=== PATIENT | female | born 1935 | race Caucasian/White ===

== ENCOUNTER 2018-12-14 08:06 | Inpatient (IN) ==
[2018-12-14 09:30] LABS: INR 0.97; PROTIME 13.6 Seconds (11.0-16.0); PTT 21.1 Seconds (22.3-41.8)
[2018-12-14 09:34] LABS: EOS# 1.14 X1000 (0.0-0.7); EOS% 11.8 % (0.0-10.0); HEMATOCRIT 35.5 % (37.0-47.0); HEMOGLOBIN 11.4 g/dL (12.0-16.0); LYMPH# 2.32 X1000 (1.2-3.4); LYMPH% 23.9 % (20.5-51.1); MCH 27.3 PG (27-31); MCHC 32.1 g/dL (33-37); MCV 84.9 FL (81-99); MONO# 0.97 X1000 (0.11-0.59); MPV 11.3 FL (7.4-10.4); NEUT# 5.16 X1000 (1.4-6.5); NEUT% 53.3 % (42.2-75.2); PLT 268 X1000 (130-400); RBC 4.18 XMIL (4.2-5.4); RDW 13.3 % (11.5-14.5); WBC 9.69 X1000 (4.8-10.8)
--- NOTE | 2018-12-14 09:37 | Diag Imaging Result Doc PS360 ---
EXAM: CHEST-2 VIEWS - 12/14/2018 HISTORY: CHEST PAIN TECHNIQUE: Chest two views COMPARISON: 11/24/2018 portable chest FINDINGS: Heart size appears within normal limits. There are stable partially calcified left upper lobe nodule compatible granuloma. There is mild prominence of central vascular markings, but there is overall decreased prominence of interstitial markings compared to prior. There is a small left pleural effusion. There is no consolidation or pneumothorax identified. IMPRESSION: Mild prominence of central vascular markings. Small left pleural effusion. Electronically signed by Dallas Jin 12/14/2018 9:35 AM
--- NOTE | 2018-12-14 09:46 | PROVIDER DOCUMENTATION ---
Addendum entered and electronically signed by DONOVAN Bernstein 12/14/18 21:52: EKG Interpretation - EKG Time of EKG reading by physician:: 08:16 EKG Read and Signed by:: Arun Alvarado EKG Interpretation (*Must complete 3 of following elements*): Abnormal Rate: 61 ST Wave: normal Addendum entered and electronically signed by DONOVAN Bernstein 12/14/18 20:40: Additional Progress - ADDITIONAL PLAN OF CARE/RESULTS Additional Progress/Plan/Lab Results: Spoke with Dr. Alvarado regarding hyponatremia- md states not to treat. Addendum entered and electronically signed by DONOVAN Bernstein 12/14/18 20:39: Departure - Departure Date of Disposition Decision: 12/14/18 Time of Disposition Decision: 09:40 DIAGNOSIS: Pleural effusion, Hyponatremia Chest pain Qualifiers: Chest pain type: unspecified Qualified Code(s): R07.9 - Chest pain, unspecified CHF (congestive heart failure) Qualifiers: Heart failure type: unspecified Heart failure chronicity: acute Qualified Code( s): I50.9 - Heart failure, unspecified Anemia Qualifiers: Anemia type: unspecified type Qualified Code(s): D64.9 - Anemia, unspecified Disposition: ADMITTED INPATIENT 09 Certified Medical Emergency: Emergent Condition: Stable - Critical Care Note This patient required my direct & personal management of CC.: No Original Note: HPI-Chest Pain - General Chief Complaint: Chest Pain Stated Complaint: cp Time Seen by Provider: 12/14/18 09:03 Source: patient Allergies/Adverse Reactions: Patient Allergies Allergy/AdvReac Type Severity Reaction Status Date / Time Penicillins AdvReac HIVES Verified 09/16/16 10:05 Home Medications: Home Medication List Medication Instructions Recorded Confirmed Last Taken Type Aspirin [Ecotrin] 1 tab PO DAILY 12/14/18 12/14/18 12/14/18 History Clopidogrel [Plavix] 1 tab PO DAILY 12/14/18 12/14/18 12/14/18 History Lisinopril [Zestril] 1 tab PO DAILY 12/14/18 12/14/18 12/14/18 History Metoprolol Succinate E.r. [Toprol 1 tab PO DAILY 0212/14/18 12/14/18 History Xl] Rosuvastatin Calcium [Crestor] 1 tab PO QHS 12/14/18 12/14/18 12/13/18 History Temazepam 30 mg PO QHS 12/14/18 12/14/18 12/13/18 History - History of Present Illness-CP Nature of Presenting Problem: Patient is an 83 yowf who complains of left-sided chest pain worse with inspiration since this morning. She denies cough, fever, SOB. Pain associated with nausea. She denies any other symptoms and is non-toxic in appearance. Hx of TN. Pt currently in cardiac rehab at [facility] due to recent TN. Location: reports: other (left chest/breast area) Chest Pain Radiation: reports: no radiation Quality of Pain: reports: other ("pain") Onset/Duration: other (this morning upon awakening) Timing: still present Modifying Factors: improves with: nothing Associated Symptoms: reports: nausea Similar Symptoms Previously?: Yes Recently Seen Here or By Another Healthcare Provider: Yes Review of Systems - Adult - REVIEW OF SYSTEMS - ADULT Constitutional: denies: chills, fever Eyes: reports: no symptoms reported Ears, Nose, Mouth & Throat: reports: no symptoms reported Cardiovascular: reports: see HPI, chest pain. denies: orthopnea, palpitations, PND, syncope Respiratory: denies: cough, shortness of breath Gastrointestinal: reports: nausea Genitourinary: reports: no symptoms reported Musculoskeletal: reports: no symptoms reported Integumentary: reports: no symptoms reported Neurological: reports: no symptoms reported Psychiatric: reports: no symptoms reported Endocrine: reports: no symptoms reported Hematologic/Lymphatic: reports: no symptoms reported Allergic/Immunologic: reports: no symptoms reported All Other Systems: Reviewed and Negative Past History - Adult - PAST MEDICAL HISTORY-ADULT Review of Records: reports: Old Records Reviewed, Nursing Assessment Review, Medications Reviewed, Social history reviewed & non-contributory. Major Childhood Illnesses: reports: denies history Cardiovascular: reports: cardiac disease, HTN, TN Respiratory: reports: denies history Gastrointestinal: reports: cholelithiasis Obstetrical/Gynecological: reports: denies history Genitourinary: reports: denies history Musculoskeletal: reports: denies history Neurological: reports: denies history Endocrine/Immune: reports: denies history Other Conditions: reports: denies history - PRIOR SURGERIES/PROCEDURES Surgical/Procedure History: reports: cholecystectomy, hysterectomy - IMMUNIZATION STATUS Childhood Immunizations: See Nurse Assessment Flu Vaccine: See Nurse Assessment - FAMILY HISTORY Family History: reviewed, not pertinent - SOCIAL HISTORY Smoking: non-smoker Physical Exam-General - PHYSICAL EXAM-ADULT Initial Vital Signs Reviewed: Yes - CONSTITUTIONAL General Appearance: alert, mild distress. negative: lethargic, slow to respond - EYES Eyes: PERRL/EOMI, pink conjunctivae - HEAD, EARS, NOSE, MOUTH & THROAT HENMT: normocephalic/atraumatic, moist mucous membranes, normal ENT inspection - NECK Neck: full range of motion, supple, normal inspection - RESPIRATORY Respiratory: lungs clear, normal breath sounds, no respiratory distress, no accessory muscle use, other (left chest/breast area tender to palpation) - CARDIOVASCULAR Cardiovascular: normal peripheral pulses, regular rate, rhythm, no edema, no gallop, no JVD, no murmur - GASTROINTESTINAL (ABDOMEN) Abdominal Exam: normal bowel sounds, non tender, soft, no organomegaly, no pulsatile mass - MUSCULOSKELETAL Back Exam: normal inspection Extremity: normal range of motion, non-tender, normal inspection - SKIN Integumentary: normal color, warm/dry. negative: cyanosis, diaphoresis, jaundice, mottled, pallor - NEUROLOGIC Neurologic: grossly normal, no motor/sensory deficits - PSYCHIATRIC Psych/Mental Status: normal mood/affect, normal thought content, normal thought process, oriented x 3 - HEART Score HEART Score: History: Highly Suspicious HEART Score: ECG: Non-Specific Repolarization Disturbance/LBBB/PM HEART Score: Age: > or = 65 Years HEART Score: Risk Factors for Atherosclerotic Disease: > or = 3 Risk Factors or History of Atherosclerotic Disease HEART Score: Troponin: < or = Normal Limit Total HEART Score:: 7 Progress - PLAN OF CARE/RESULTS Progress/Plan/Lab Results: Orders Category Date Time Status Admit - [facility] Routine AdmDCTranf 12/14/18 12:08 Active Cardiac Monitoring DIRECTED Care 12/14/18 08:59 Completed Cardiology Consult Routine Care 12/14/18 12:08 Completed Ewing Cath Insertion ORDERED Care 12/14/18 11:08 Completed Saline Loc NOW Care 12/14/18 08:59 Completed Vital Signs Order Q30M Care 12/14/18 09:13 Completed CHEST-2 VIEWS [RAD] Stat Exams 12/14/18 08:59 Completed CBC WITH ELECTRONIC DIFF [HEME] Stat Lab 12/14/18 08:35 Completed CK PROFILE [SP CHEM] Stat Lab 12/14/18 08:35 Completed COMPREHENSIVE METABOLIC PANEL [CHEM] Stat Lab 12/14/18 08:35 Completed MAGNESIUM [CHEM] Stat Lab 12/14/18 08:35 Completed PRO B-NATRIURETIC PEPTIDE Stat Lab 12/14/18 08:35 Completed PROTIME WITH INR [COAG] Stat Lab 12/14/18 08:35 Completed PTT [COAG] Stat Lab 12/14/18 08:35 Completed TROPONIN T Stat Lab 12/14/18 08:35 Completed Aspirin Med 12/14/18 10:10 Discontinued 325 mg PO NOW ONE Furosemide [Lasix] Med 12/14/18 10:10 Discontinued 40 mg IV NOW ONE CP/SOB/Palp >45 yrs of Age Stat Oth 12/14/18 08:58 Ordered EKG [EKG] Stat Ther 12/14/18 08:59 Draft Transfer/Admit Order [TRANSFER] Routine Transfer 12/14/18 11:09 Completed 1107- Spoke with Dr. Reynoso who states to admit to Dr. Lugo and he will see pt and consult Dr. Monk. Pt and family aware of admission plan and are in agreement. Result Diagrams: 12/17/18 06:29 12/20/18 05:03 - XRAY 1 XRAY Study: Chest ([facility] [address] , [address], [place] [address] Department of Imaging Patient: MISTI LIMA Date: #: [id number] : 1935DM Status: PRE ERAcct#: [id number] Age/Sex: 83/FRoom/Bed: Loc: ED Ordering Physician: Arun Alvarado MD Family Physician : Cr Wilhelm Reason for Procedure: CHEST PAIN Signed EXAM: CHEST-2 VIEWS - 12/14/2018 HISTORY: CHEST PAIN TECHNIQUE: Chest two views COMPARISON: 11/24/2018 portable chest FINDINGS: Heart size appears within normal limits. There are stable partially calcified left upper lobe nodule compatible granuloma. There is mild prominence of central vascular markings, but there is overall decreased prominence of interstitial markings compared to prior. There is a small left pleural effusion. There is no consolidation or pneumothorax identified. IMPRESSION: Mild prominence of central vascular markings. Small left pleural effusion. Electronically signed by Dallas Jin 12/14/2018 9:35 AM 12/14/18 0935 Interpreting Physician: Dallas Jin MD Dictated Date/Time: 12/14/1831 cc: Arun Alvarado MD ; Cr Wilhelm III, MD) - CONSULTS/PCP/HOSPITALIST Notification #1 *Consult/PCP/Hospitalist*: Dr. Reynoso Time Discussed: 09:15 Consult Disposition: other (Md states to call [place] to evaluate whether or not pt should be transferred back.) #2 Consult: Moe in [place] Time Discussed: 09:45 Consult Disposition: other (States to consult cardiology here before making decision to transfer) #3 Consult: Dr. Monk Time Discussed: 10:15 Consult Disposition: Admit (States to call Dr. Reynoso back to be admitted here that it does not appear pt needs to be transferred to [place] at this time.) Departure - Departure Date of Disposition Decision: 12/14/18 Time of Disposition Decision: 09:40 DIAGNOSIS: Pleural effusion, Hyponatremia Chest pain Qualifiers: Chest pain type: unspecified Qualified Code(s): R07.9 - Chest pain, unspecified CHF (congestive heart failure) Qualifiers: Heart failure type: unspecified Heart failure chronicity: acute Qualified Code( s): I50.9 - Heart failure, unspecified Anemia Qualifiers: Anemia type: unspecified type Qualified Code(s): D64.9 - Anemia, unspecified Disposition: ADMITTED INPATIENT 09 Certified Medical Emergency: Emergent Condition: Stable - Critical Care Note This patient required my direct & personal management of CC.: No Attestation - Physician/ HERBERT Attestation Patient care was provided by Advanced Practice Provider:: Yes Advanced Practice Provider:: Erin Weiner Advanced Practice Provider documentation review:: The Mid-level provider documentation, treatment plan and medical decision making was reviewed by the physician who agrees with all treatment and medical decision making by the MLP. The physician spent face to face time with patient:: No Advanced Practice Provider documentation review:: Supervising physician onsite and consulted in the evaluation and care of this patient. The physician did not have a face to face encounter with the patient.
[2018-12-14 09:55] LABS: ALB/GLOB RATIO 0.9; ALBUMIN 3.4 g/dL (3.5-5.0); CALCIUM 9.2 mg/dL (8.8-10.2); CREATININE 1.9 mg/dL (0.5-0.9); POTASSIUM 5.6 mmol/L (3.5-5.1); TOTAL BILIRUBIN 0.32 mg/dL (0.20-1.00)
[2018-12-14] MEDS ORDERED: ASPIRIN PO ONE (10:10)
[2018-12-14] MEDS ORDERED: LASIX IV ONE (10:10)
--- NOTE | 2018-12-14 11:51 | EKG Report ---
Test Performed on : 12/14/2018 08:15:46 AM Test Reason : CHEST PAIN Blood Pressure : / mmHG Vent. Rate : 061 BPM Atrial Rate : 061 BPM P-R Int : 116 ms QRS Dur : 074 ms QT Int : 410 ms P-R-T Axes : 022 -13 -22 degrees QTc Int : 412 ms Normal sinus rhythm. Low voltage QRS Inferior infarct , age undetermined Cannot rule out Anterior infarct , age undetermined Abnormal ECG No previous ECGs available Unconfirmed Result
[2018-12-14] MEDS ORDERED: TYLENOL PO PRN (13:38)
--- NOTE | 2018-12-14 14:12 | HISTORY AND PHYSICAL ---
CHIEF COMPLAINT: Chest pain. HISTORY OF PRESENT ILLNESS: The patient is an 83-year-old, white female who had an NV not long ago, and was in rehab for cardiac status. She did have stent placement. This was all done at [facility]. This morning she woke up she thinks around 05:00 or 06:00 in the morning with some mild left-sided chest pain when she takes a deep breath. This sounds more like pleuritic pain than anything else. She denied cough, fever or shortness of breath. She has not had this before. She was brought to the emergency room. PAST MEDICAL HISTORY: Past history includes medications of aspirin 81 mg daily, Plavix 1 daily, lisinopril 1 tablet daily. I do not have the dosages on these. Metoprolol succinate one tablet daily, I did not know the dosages and Crestor 1 tablet at bedtime, do not have the dosages on this. PAST SURGICAL HISTORY: The patient's past history also includes surgical history of initially a partial hysterectomy, and later she had another surgery that made it into a total hysterectomy. She has had old style cholecystectomy with a large scar. She has had a left carotid endarterectomy. ALLERGIES: She is allergic to penicillin. REVIEW OF SYSTEMS: Neurological: Denies headaches, seizures, visual problems, or hearing problems. Since then, she is having a hard time remembering. She has been a little confused. I could not remember all the details. Pulmonary: Denies cough, wheezing, or dyspnea. Cardiovascular: Denies chest pains that sound cardiac. Her sounds more pleuritic. She has had no arrhythmias. She has had a recent NV within the last few weeks. GI: Denies hematochezia, hematemesis, melena, constipation, and occasionally has reflux. She has had impactions in the past but has not had that problem recently. : Denies any difficulty with urination. Musculoskeletal: Denies any injuries or problems with arthritis at this time. Psychiatric: She has had a little trouble with memory, but denies depression or anxiety. Endocrine: Denies diabetes or other endocrine problems. She has generally felt a little tired. SOCIAL HISTORY: She does not use alcohol or tobacco. FAMILY HISTORY: She has never had any children, and is negative for any vascular disease. PHYSICAL EXAMINATION: VITAL SIGNS: Blood pressure 132/56, respirations 20, pulse 63 and regular, temperature 97.6 degrees Fahrenheit. HEENT: She is normocephalic. EOMS intact. PERRLA. Throat clear. LUNGS: Clear to auscultation and percussion without rhonchi, rales, or wheezes at this time. HEART: Regular rate and rhythm without murmurs, gallops, or friction rubs. ABDOMEN: Soft. Active bowel sounds. No organomegaly or tenderness. BREASTS: Exam is normal bilaterally with no masses. PELVIC AND RECTAL: Exams are deferred. LYMPHATIC: Lymph nodes are nonpalpable in the cervical or supraclavicular areas. NEUROLOGICAL: Exam shows cranial nerves 2-12 intact grossly. Sensory and motor intact. Reflexes 1+ all. LABORATORY STUDIES: Laboratory does show white count of 9690, hemoglobin 11.4 and hematocrit 35.5. Platelet count 268,000. Sodium slightly low at 126. She tells me she has not had any sodium problems in the past that she knows of. Potassium is 5.6, which is up slightly. Chloride is 94 which is down slightly. CO2 is 24 down slightly. BUN is 28 and creatinine is 1.9. I do not know if this is chronic renal failure or something more acute. Her proBNP is 5036 more consistent with congestive heart failure. Chest x-ray shows mild prominence of the central vascular markings with small left pleural effusion which may be where her pain is coming from. EKG shows a normal sinus rhythm with an inferior infarct of age indeterminate. Also, cannot rule out anterior infarct, age undetermined. It is interesting that the patient had been admitted to the hospital in July of 2018 with atrial fibrillation and rapid ventricular response. Apparently, she is not in atrial fibrillation any longer. She did have a cardioversion that was successful at that time apparently. The patient was unaware of all of this at least at this time. We have been discussing it with her. ASSESSMENT: 1. Chest pain. 2. Left pleural effusion. 3. Probable CHF with elevated proBNP. 4. Coronary artery disease. 5. Peripheral vascular disease. 6. Hypertension. 7. History of atrial fibrillation. 8. Hyponatremia. 9. Slight hyperkalemia. 10. Slight hypochloremia. PLAN: We will admit, and have consulted Cardiology. We will watch electrolytes closely. We will get an echocardiogram. If pleural effusion is persistent, may have to consider thoracentesis, but we will see what cardiology says first. cc: MD Arun Quesada Jr, MD
[2018-12-14 15:12] LABS: URINE SOURCE CATH
[2018-12-14 15:16] LABS: BILIRUBIN URINE NEGATIVE (NEGATIVE); BLOOD URINE SMALL (NEGATIVE); COLOR YELLOW; GLUCOSE URINE NEGATIVE (NEGATIVE); KETONE URINE NEGATIVE (NEGATIVE); LEUKOCYTES URINE NEGATIVE (NEGATIVE); NITRITE URINE NEGATIVE (NEGATIVE); PROTEIN URINE 70 mg/dL (NEGATIVE); SP GRAVITY URINE 1.004; TURBIDITY URINE HAZY (CLEAR); UR EPITHELIAL CELLS <10 /HPF (<10); URINE BACTERIA NEGATIVE /HPF; URINE RBC <10 /HPF (<10); URINE WBC <10 /HPF (<10); UROBILINOGEN URINE NORMAL (NORMAL)
[2018-12-14 15:37] LABS: URINE CRYSTALS NONE SEEN
[2018-12-14] MEDS: IMDUR PO SCH (17:17)
[2018-12-14] MEDS: LOVENOX SUBQ SCH (18:16)
[2018-12-14] MEDS: COLACE PO SCH (18:16)
[2018-12-14] MEDS: ZOFRAN IV PRN (19:28)
[2018-12-14] MEDS: RESTORIL PO SCH (21:59)
[2018-12-14] MEDS: CRESTOR PO SCH (21:59)
[2018-12-15 05:37] LABS: BASO# 0.09 X1000 (0.0-0.2); BASO% 1.1 % (0.0-0.8); EOS# 0.46 X1000 (0.0-0.7); EOS% 5.4 % (0.0-10.0); HEMOGLOBIN 12.2 g/dL (12.0-16.0); IMM GRAN# 0.02 X1000 (0.0-0.04); IMM GRAN% 0.2 % (0.0-0.5); LYMPH# 1.61 X1000 (1.2-3.4); LYMPH% 18.8 % (20.5-51.1); MCH 27.1 PG (27-31); MCHC 32.1 g/dL (33-37); MCV 84.4 FL (81-99); MONO# 0.98 X1000 (0.11-0.59); MONO% 11.4 % (1.7-9.3); NEUT% 63.1 % (42.2-75.2); PLT 295 X1000 (130-400); RDW 13.2 % (11.5-14.5); WBC 8.56 X1000 (4.8-10.8)
[2018-12-15 05:50] LABS: CALCIUM 9.2 mg/dL (8.8-10.2); CREATININE 2.1 mg/dL (0.5-0.9); POTASSIUM 5.9 mmol/L (3.5-5.1)
[2018-12-15 07:12] LABS: EOS 2 % (1-10); LYMPHS 24 % (21-51); SEGS 74 % (42-75)
--- NOTE | 2018-12-15 09:34 | Diag Imaging Result Doc PS360 ---
EXAM: CHEST-2 VIEWS 12/15/2018 HISTORY: chf TECHNIQUE: PA and lateral chest COMMENT: There is some blunting of the left costophrenic angle which may be due to fibrosis as this has not changed since 08/14/2018. There has been no significant change in the appearance of the chest otherwise. IMPRESSION: Stable chest. Electronically signed by Maurice Busby 12/15/2018 9:31 AM
--- NOTE | 2018-12-15 09:39 | PROGRESS NOTE ---
DATE: 12/15/2018 SUBJECTIVE: The patient states she just does not feel well. I tried to get her to explain it, and she could not. She is not hurting anywhere. She is not short of breath. She occasionally has a little left lower quadrant abdominal pain. She says she has not been constipated. I asked her if she was depressed, and she just did not answer. She looks weak and tired. Her blood pressure is stable. She is not anemic. Sodium is 126 which could be contributing to that. Potassium is 5.9, creatinine is up to 2.1 probably from the Lasix. We will get a thyroid test and vitamin B12. It may just be the sodium being low at 126 is affecting her. OBJECTIVE: Vital Signs: Blood pressure 108/41, respirations 16, pulse 66, and temperature 98.5 degrees Fahrenheit. HEENT: She is normocephalic. EOMS intact. PERRLA. Throat clear. Lungs: Sound clear to auscultation and percussion without rhonchi, rales, or wheezes. Heart: Regular rate and rhythm without murmurs, gallops, or friction rubs. Abdomen: Soft. Active bowel sounds. No organomegaly or tenderness. Neurological: Intact grossly. The patient looks tired. She really does not want to talk much at this time. She says it is hard for her to explain how she feels. ASSESSMENT: 1. Congestive heart failure. 2. Left pleural effusion. 3. Fatigue. 4. Coronary artery disease. PLAN: Awaiting echocardiogram. We will continue diuresis. Watch sodium and kidney function closely. cc: MD Arun Quesada Jr, MD
[2018-12-15 09:43] LABS: T4 6.95 ug/dL (4.60-12.00); TSH 4.58 uIUmL (0.27-4.20)
[2018-12-15] MEDS: ASPIRIN EC PO SCH (09:49)
[2018-12-15] MEDS: PLAVIX PO SCH (09:49)
[2018-12-15] MEDS: IMDUR PO SCH (09:49)
[2018-12-15] MEDS: COLACE PO SCH (09:49)
[2018-12-15] MEDS: PRINIVIL PO SCH (09:49)
[2018-12-15] MEDS: TOPROL XL PO SCH (09:52)
[2018-12-15] MEDS: LASIX IV SCH (10:12)
[2018-12-15] MEDS: LOVENOX SUBQ SCH (13:39)
--- NOTE | 2018-12-15 14:51 | ECHO REPORT ---
ORDER DATE: 12/14/2018 INDICATION: CHF. FINDINGS: 1. The right atrium appears normal in size. 2. Mild tricuspid regurgitation. RV systolic pressure of 37. 3. Normal RV size and systolic function. 4. Trace pulmonic insufficiency. 5. Suggestion of moderate to possibly severe left atrial enlargement. The dimension is 4.2 cm. 6. No mitral valve prolapse. Mild mitral regurgitation. 7. Normal LV size, end-diastolic dimension of 4.2. Normal wall thicknesses with posterior and interventricular septal wall thickness of 0.8 cm each. Normal LV systolic function. Estimated EF of 65% with normal wall motion. 8. Aortic valve opens well. It is trileaflet. No evidence of stenosis or insufficiency. 9. Aorta appears normal in visualized segments. 10. No pericardial effusion seen. cc: MD Louie Holcomb Jr, MD Robert Allen, MD
[2018-12-15] MEDS: RESTORIL PO SCH (21:45)
[2018-12-15] MEDS: CRESTOR PO SCH (21:45)
[2018-12-15] MEDS: ZOFRAN IV PRN (21:46)
[2018-12-16 06:59] LABS: BASO# 0.08 X1000 (0.0-0.2); BASO% 1.1 % (0.0-0.8); EOS# 0.36 X1000 (0.0-0.7); EOS% 5.1 % (0.0-10.0); HEMATOCRIT 34.3 % (37.0-47.0); HEMOGLOBIN 11.1 g/dL (12.0-16.0); LYMPH% 25.4 % (20.5-51.1); MCH 27.3 PG (27-31); MCHC 32.4 g/dL (33-37); MCV 84.3 FL (81-99); MONO% 11.3 % (1.7-9.3); MPV 11.4 FL (7.4-10.4); NEUT# 4.04 X1000 (1.4-6.5); NEUT% 57.1 % (42.2-75.2); PLT 264 X1000 (130-400); RBC 4.07 XMIL (4.2-5.4); WBC 7.08 X1000 (4.8-10.8)
[2018-12-16 07:24] LABS: CALCIUM 9.3 mg/dL (8.8-10.2); CREATININE 2.4 mg/dL (0.5-0.9); POTASSIUM 5.3 mmol/L (3.5-5.1)
[2018-12-16 07:50] LABS: EOS 4 % (1-10); LYMPHS 32 % (21-51); MONO 2 % (1-9); SEGS 60 % (42-75)
[2018-12-16] MEDS: COLACE PO SCH (11:06)
[2018-12-16] MEDS: PRINIVIL PO SCH (11:06)
[2018-12-16] MEDS: IMDUR PO SCH (11:06)
[2018-12-16] MEDS: PLAVIX PO SCH (11:06)
[2018-12-16] MEDS: ASPIRIN EC PO SCH (11:06)
[2018-12-16] MEDS: TOPROL XL PO SCH ×2 (11:06→16:25)
[2018-12-16] MEDS: LASIX IV SCH (11:07)
--- NOTE | 2018-12-16 13:11 | PROGRESS NOTE ---
DATE: 12/16/2018 SUBJECTIVE: The patient says she is feeling better. Has no complaints. No chest pain. No abdominal pain. OBJECTIVE: Vital Signs: Blood pressure 102/49, respirations 16, pulse 75, temperature 97.8 degrees. HEENT: She is normocephalic. EOMS intact. PERRLA. Throat clear. Lungs: Sound clear to auscultation and percussion without rhonchi, rales, or wheezes. Heart: Regular rate and rhythm without murmurs, gallops, friction rubs. Abdomen: Soft. Active bowel sounds. No organomegaly or tenderness. Neurological: Intact grossly. LABORATORY DATA: Sodium is up to 127. Her thyroid function test and vitamin B12 levels that we chanelle because of her fatigue were normal. Her echocardiogram showed an ejection fraction of 65%. There was suggestion of moderate to possibly severe left atrial enlargement. The rest of the study was normal. Her chest x-ray showed blunting at the left costophrenic angle and instead of calling this a pleural effusion they thought that it might be fibrosis because it has not changed since 08/14/2018 and I have given her Lasix already. She had no swelling in her feet. She did have an elevated proBNP of a little over 5000. Still awaiting Cardiology to see the patient. ASSESSMENT: 1. Questionable congestive heart failure. 2. Pleural effusion versus fibrosis left base. 3. Status post myocardial infarction. 4. Generalized weakness. We will start on some physical therapy. cc: MD Arun Quesada Jr, MD
[2018-12-16] MEDS: LOVENOX SUBQ SCH (14:04)
[2018-12-16] MEDS: ZOFRAN IV PRN (17:03)
[2018-12-16] MEDS: RESTORIL PO SCH (21:48)
[2018-12-16] MEDS: CRESTOR PO SCH (21:48)
[2018-12-17 06:51] LABS: BASO# 0.07 X1000 (0.0-0.2); EOS# 0.43 X1000 (0.0-0.7); EOS% 5.9 % (0.0-10.0); HEMOGLOBIN 11.6 g/dL (12.0-16.0); LYMPH% 24.6 % (20.5-51.1); MCH 27.4 PG (27-31); MCHC 32.2 g/dL (33-37); MCV 85.1 FL (81-99); MONO% 13.6 % (1.7-9.3); NEUT# 4.03 X1000 (1.4-6.5); NEUT% 54.9 % (42.2-75.2); PLT 244 X1000 (130-400); RBC 4.23 XMIL (4.2-5.4); WBC 7.33 X1000 (4.8-10.8)
[2018-12-17 08:04] LABS: CALCIUM 9.2 mg/dL (8.8-10.2); CREATININE 2.2 mg/dL (0.5-0.9); POTASSIUM 4.7 mmol/L (3.5-5.1)
[2018-12-17] MEDS: COLACE PO SCH (09:55)
[2018-12-17] MEDS: IMDUR PO SCH (09:55)
[2018-12-17] MEDS: ASPIRIN EC PO SCH (09:55)
[2018-12-17] MEDS: TOPROL XL PO SCH (09:55)
[2018-12-17] MEDS: PLAVIX PO SCH (09:55)
--- NOTE | 2018-12-17 12:05 | PROGRESS NOTE ---
DATE: 12/17/2018 SUBJECTIVE: The patient says she just does not feel good. She cannot explain it to me but just says she does not feel good. She says she has low back pain and has had that for some time. She says she is just getting old. Looking at her heart situation and discussing this in detail with Dr. Ritesh Cerda, vehicle window tinter, I felt like she was not having any new heart problems and that her chest pain was atypical. She even admitted that the chest pain was left-sided and not very severe. She was sent over by her rehab because she had a heart attack with stent placement just a couple of weeks prior to being transported over. There was some question about left pleural effusion but this is unchanged from before. It may be old scar tissue or fibrosis. I asked her if she was depressed and she said no but she started crying. I explained to her that it is not uncommon to be upset after a heart attack and having these changes but she still states that she does not think that she is depressed but she has a very flat affect. She seems pessimistic, does not think she will ever get to go back home again, and complains of the low back pain when she is up and walking. She has had no dysuria but has a Ewing catheter in and the urine looks clear but I will go ahead and culture that and do another urinalysis, or at least get a urinalysis with a reflux culture. If there is an infection, we will treat that. Because she has just felt so tired and felt so bad, and cannot be more specific, I did check thyroid function tests and a vitamin B12 level. Those were normal. She does have some mild kidney failure. Some of this is chronic. Her creatinine is 2.2 today, BUN 64. Sodium is 127, which can make some people feel bad but that is not very low for those feelings. PHYSICAL EXAMINATION: Vital Signs: Show blood pressure of 103/43, respirations 14, pulse 75, temperature 98.6 degrees Fahrenheit. HEENT: She is normocephalic. EOMs intact. PERRLA. Throat clear. Lungs: Clear to auscultation and percussion without rhonchi, rales, or wheezes. Heart: Regular rate and rhythm without murmurs, gallops, or friction rubs. Abdomen: Soft. Active bowel sounds. No organomegaly or tenderness. Psychiatric: The patient appears depressed to me, even though she denies it. She has somewhat of a flat affect. She seems pessimistic and sad. She has been tearful. ASSESSMENT: 1. Chest pain. 2. Coronary artery disease, status post stenting and status post myocardial infarction. 3. Low back pain, which is chronic. 4. Just a feeling of not being well. PLAN: We will stop her Ewing catheter and get repeat a urinalysis as above. She may need further workup on her back but I do not know what has been done as an outpatient already. Dr. Lugo will be back in the morning and then he can decide about this. From a cardiac point of view, cardiology does not think that she needs any other intervention at this time. Her other symptoms and signs are a little harder to tell about. We will see if Dr. Lugo can shed some light on this. It could also be that her hyponatremia is affecting her more than I would think it should. She certainly does have some hyponatremia. Her Lasix has been stopped and her ROYAL inhibitor has been stopped. cc: MD Arun Quesada Jr, MD
[2018-12-17] MEDS: LOVENOX SUBQ SCH (13:43)
[2018-12-17 13:44] LABS: URINE SOURCE CATH
[2018-12-17 13:46] LABS: BILIRUBIN URINE NEGATIVE (NEGATIVE); BLOOD URINE MODERATE (NEGATIVE); COLOR YELLOW; GLUCOSE URINE NEGATIVE (NEGATIVE); KETONE URINE NEGATIVE (NEGATIVE); LEUKOCYTES URINE MODERATE (NEGATIVE); NITRITE URINE NEGATIVE (NEGATIVE); PROTEIN URINE TRACE mg/dL (NEGATIVE); TURBIDITY URINE HAZY (CLEAR); UROBILINOGEN URINE NORMAL (NORMAL)
[2018-12-17 13:48] LABS: UR EPITHELIAL CELLS <10 /HPF (<10); URINE BACTERIA NEGATIVE /HPF; URINE RBC TNTC /HPF (<10); URINE WBC <10 /HPF (<10)
[2018-12-17] MEDS: CRESTOR PO SCH (21:44)
[2018-12-17] MEDS: RESTORIL PO SCH (21:44)
--- NOTE | 2018-12-18 08:33 | PROGRESS NOTE ---
DATE: 12/18/2018 Vital signs stable with temperature 98.0, heart rate 84, respiration 18, blood pressure 109/48, O2 saturation on room air 97%. The patient is eating fairly well. She has not been out of the bed since being in the hospital. Laboratory yesterday revealed BUN 64, creatinine 2.2, sodium 127, proBNP on 12/16/2018 was 5900. Echocardiogram showed ejection fraction 65% and good left ventricular function. Initially, there was a small left pleural effusion. O2 sats have remained good. Exam reveals depressed affect. She states she needs more rehab time and does not feel she will ever return home. PLAN: Add Lexapro and physical therapy to assist ambulation. Social service consult will be obtained to determine disposition and extended rehab or group home care. cc: Arun Lugo MD
[2018-12-18] MEDS ORDERED: LEXAPRO PO SCH (09:00)
--- NOTE | 2018-12-18 09:51 | CONSULTATION ---
DATE OF CONSULTATION: 12/16/2018 IMPRESSION: 1. Recent chest discomfort, very atypical for myocardial ischemia. No acute change on ECG, and serial troponins normal. Suspect chest discomfort is likely noncardiac. 2. Atherosclerotic coronary disease. Patient is status post acute inferior-posterior myocardial infarction on 11/24/2018 and had emergent coronary angioplasty with stenting, presumably of the right coronary artery, in [facility]. Following her hospitalization there she was discharged to rehab. 3. Paroxysmal atrial fibrillation. The patient is status post previous cardioversion of atrial fibrillation last year. 4. Hypertension. RECOMMENDATIONS: 1. Continue dual antiplatelet therapy with aspirin and Plavix. 2. Continue statin therapy. 3. Continue medical management of the patient's coronary atherosclerosis at this time. Recent chest symptoms are likely noncardiac. It is reasonable for her to be discharged to home soon. HISTORY: This 83-year-old white female with a past history of hypertension, previous atrial fibrillation requiring cardioversion, and more recent acute inferior-posterior myocardial infarction 3 weeks ago treated with emergent angioplasty/stenting in [facility] was admitted on transfer from the rehab facility because of chest discomfort. On November 24 of this year she related developing pain in her left hand which extended up her left arm and into her left chest. She went to the emergency room by ambulance and was found to be having an acute inferior- posterior myocardial infarction. She was transferred emergently to [facility] and had emergency angioplasty with stenting. Following hospitalization there, she was discharged to a residential facility for rehabilitation. Two days ago she related some discomfort in her left lateral chest that seemed to be provoked by breathing out, and it would very momentary/fleeting. She has had no recurrence of left arm discomfort or chest discomfort like she had with her acute ND. PAST MEDICAL HISTORY: 1. Previous atrial fibrillation requiring cardioversion last year. The patient continues in sinus rhythm. 2. Hypertension. 3. Atherosclerotic coronary disease with previous acute inferior-posterior myocardial infarction on 11/24/2018, treated with emergency angioplasty with stenting, presumably of the right coronary artery, at [facility]. PAST SURGICAL HISTORY: Includes partial hysterectomy, later bilateral salpingo-oophorectomy, unspecified throat surgery, cholecystectomy, and appendectomy. ALLERGIES: She is allergic or intolerant to penicillin. MEDICATIONS PRIOR TO ADMISSION: As listed SOCIAL HISTORY: She lives by herself at home. She does not smoke or use alcohol. FAMILY HISTORY: Negative for premature coronary disease. REVIEW OF SYSTEMS: PULMONARY: Negative GASTROINTESTINAL: Negative CONSTITUTIONAL: Negative. Remainder of review of systems negative/noncontributory, with 14 total systems reviewed. PHYSICAL EXAMINATION GENERAL: This is a thin, elderly, somewhat frail-appearing white female in no distress on room air. VITAL SIGNS: Blood pressure 121/52, heart rate 72 and regular, oxygen saturation 100% on room air. HEENT: Extraocular movements appear to be intact. Mucous membranes moist. NECK: Supple without jugular venous distention. There are no carotid bruits. CHEST: Clear to auscultation bilaterally. CARDIAC: Exam reveals a regular rate and rhythm without appreciable murmur, rub or gallop. ABDOMEN: Soft. Bowel sounds are normal. EXTREMITIES: Without edema. NEUROLOGIC: Exam reveals her to be alert and fully oriented. Speech is fluent. She moves all 4 extremities. She moves all 4 extremities equally well. SKIN: Warm and dry. PSYCHIATRIC: Exam reveals her mood to be appropriate. DIAGNOSTICS: ECG demonstrates sinus rhythm, low-voltage QRS, and cannot rule out inferior infarction of indeterminate age. LABORATORY DATA: Includes white blood cell count of 7.08, hematocrit of 34.3, hemoglobin of 11.1, platelet count of 264. Sodium 127, potassium 5.3, chloride 91, carbon dioxide 23, BUN 54, creatinine 2.4, glucose 84. Initial troponin 0.050, followup troponin 0.064. cc: MD Arun Smith MD
[2018-12-18] MEDS: ASPIRIN EC PO SCH (10:35)
[2018-12-18] MEDS: TOPROL XL PO SCH (10:35)
[2018-12-18] MEDS: PLAVIX PO SCH (10:35)
[2018-12-18] MEDS: COLACE PO SCH (10:35)
[2018-12-18] MEDS: IMDUR PO SCH (10:35)
[2018-12-18] MEDS: LOVENOX SUBQ SCH ×2 (12:31→15:04)
[2018-12-18] MEDS ORDERED: LOVENOX SUBQ ONE (15:18)
[2018-12-18] MEDS ORDERED: CORDARONE IV ONE (15:20)
[2018-12-18] MEDS ORDERED: CORDARONE 360 MG/D5W 360 MG/200 ML IV.SOLN IV ONE (15:21)
--- NOTE | 2018-12-18 15:54 | PROGRESS NOTE ---
DATE: 12/18/2018 SUBJECTIVE: Patient denies chest discomfort or dyspnea. She complains of nausea. She went into atrial fibrillation with rapid ventricular rate earlier. OBJECTIVE: Vital Signs: Blood pressure 110/82, heart rate 135 and irregular. ECG monitor shows atrial fibrillation with rapid ventricular rate. There was a short episode of irregular wide complex tachycardia that was probably atrial fibrillation with aberrancy. Oxygen saturation 96% on room air. Neck: There is no significant jugular venous distention. Chest: Clear to auscultation. Cardiac: Irregular tachycardia without appreciable murmur or gallop. Extremities: Without edema. LABORATORY DATA: Includes a white blood cell count 7.33 hematocrit 36.0, hemoglobin 11.6, platelet count 244,000. Sodium 127, potassium 4.7, chloride 88, carbon dioxide 24, BUN 64, creatinine 2.2. IMPRESSION: 1. Atrial fibrillation with rapid ventricular rate. Patient has history of previous atrial fibrillation in the past. She has very limited symptomatology with her atrial fibrillation. 2. Recent atypical chest discomfort. Probably noncardiac. Serial troponins normal. 3. Atherosclerotic coronary disease. Patient is status post acute inferior posterior myocardial infarction 11/24/2018 and had emergent coronary angioplasty/stenting presumed of the right coronary artery at [facility]. 4. Hypertension. RECOMMENDATIONS: 1. Augment Lovenox to 1 mg/kg subcutaneously daily. 2. Increase metoprolol for rate control. 3. Transfer to [facility]. 4. Initiate amiodarone intravenously in effort to restore sinus rhythm promptly. cc: MD Arun Smith MD
[2018-12-18] MEDS: LOPRESSOR PO SCH ×2 (16:12→21:24)
[2018-12-18] MEDS: REGLAN IV SCH (18:03)
--- NOTE | 2018-12-18 19:35 | PROGRESS NOTE ---
DATE: 12/18/2018 VITAL SIGNS: Temperature 98.1 degrees, heart rate 128 and irregular, respiratory rate 21, blood pressure 107/74, O2 saturation on room air 97%. Patient had an episode of rapid heart rate this morning thought to be ventricular tachycardia, [address] Cerda felt that it was atrial fibrillation with rapid ventricular response. She was placed on metoprolol and amiodarone. She also was moved to CICU. She continues to be weak but has no sense of palpitations or tachycardia. Her breathing seems normal. Her appetite is fair. PLAN: Change several medicine because of persistent nausea especially in the morning. Restoril is decreased to 15 mg at bedtime. Mirtazapine is added 15 mg at bedtime and Lexapro is discontinued. Lovenox is increased to 60 mg q.12 hours. She is placed on Reglan for nausea and Zofran is discontinued. Reglan is ordered 5 mg IV q.6 hours. cc: Arun Lugo MD
[2018-12-18] MEDS ORDERED: CORDARONE 540 MG in D5W 289.2 ML IV ONE (21:21)
[2018-12-18] MEDS: CRESTOR PO SCH (21:23)
[2018-12-18] MEDS: REMERON PO SCH (21:23)
[2018-12-18] MEDS: RESTORIL PO SCH (21:24)
[2018-12-19] MEDS: REGLAN IV SCH ×5 (00:01→23:49)
[2018-12-19] MEDS: LOPRESSOR PO SCH ×4 (03:32→20:24)
[2018-12-19 06:03] LABS: CALCIUM 8.9 mg/dL (8.8-10.2); CREATININE 1.5 mg/dL (0.5-0.9); POTASSIUM 4.3 mmol/L (3.5-5.1)
[2018-12-19] MEDS ORDERED: LOVENOX 1 MG/KG SUBQ SCH (08:00)
[2018-12-19] MEDS: LOVENOX SUBQ SCH (09:13)
[2018-12-19] MEDS: NS 1,000 ML IV SCH ×2 (09:13→19:41)
[2018-12-19] MEDS: ASPIRIN EC PO SCH (09:13)
[2018-12-19] MEDS: COLACE PO SCH (09:13)
[2018-12-19] MEDS: PLAVIX PO SCH (09:13)
[2018-12-19] MEDS: IMDUR PO SCH (09:13)
--- NOTE | 2018-12-19 10:27 | PROGRESS NOTE ---
DATE: 12/19/2018 VITAL SIGNS: Temperature 97.9 degrees, heart rate 86-110. Rhythm, atrial fibrillation. Blood pressure 96/50, O2 saturation 96% on room air. LABORATORY: Sodium 128, potassium 4.3, BUN 70, creatinine 1.5. The patient continues to have depressed affect and does not feel she will ever return to home. She will most likely go back to rehab at discharge. She was given amiodarone last night and heart rate has decreased from 130 to the 90s. She continues to feel weak. Appetite is fair. She ate a little better yesterday morning. She was nauseated last night after taking her medicines. Hopefully, the Reglan that was started last night will help her nausea. She seems to have nausea usually after taking pills, most often in the morning but last night, she had some vomiting then. PLAN: Physical therapy to strengthen. IV fluid will be adjusted to improve sodium and BUN. cc: Arun Lugo MD
--- NOTE | 2018-12-19 17:15 | PROGRESS NOTE ---
DATE: 12/19/2018 SUBJECTIVE: The patient denies chest discomfort or dyspnea. She still reports feeling weak and fatigued. Nausea has improved. She continues in atrial fibrillation. OBJECTIVE: Vital Signs: Blood pressure 96/50, heart rate 95 and irregular, with ECG monitor showing atrial fibrillation. Oxygen saturation 95% on room air. There is no significant jugular venous distention. Chest is clear to auscultation. Cardiac exam reveals an irregular rate and rhythm without appreciable murmur or gallop. There is no evidence of peripheral edema. LABORATORY DATA: Includes a sodium 128, potassium 4.3, chloride 92, carbon dioxide 24, BUN 70, creatinine 1.5, glucose 103. IMPRESSION: 1. Atrial fibrillation with rapid ventricular rate, with history of paroxysmal atrial fibrillation. Heart rate controlled. 2. Recent atypical chest discomfort, probably noncardiac. Serial troponins normal. 3. Atherosclerotic coronary disease. The patient is status post acute inferoposterior myocardial infarction 11/24/2018 and had emergent coronary angioplasty/stenting, presumably of the right coronary artery, at [facility]. Left ventricular ejection fraction on recent echocardiography normal. 4. Hypertension. RECOMMENDATIONS: 1. Continue amiodarone and switch to 200 mg p.o. t.i.d. 2. Continue Lovenox 1 mg/kg subcutaneous daily. 3. Continue metoprolol for rate control. 4. If atrial fibrillation persists after another 36 hours, we will consider STONEY cardioversion. cc: MD Arun Smith MD
[2018-12-19] MEDS: CORDARONE PO SCH (17:31)
[2018-12-19] MEDS: REMERON PO SCH (20:24)
[2018-12-19] MEDS: CRESTOR PO SCH (20:25)
[2018-12-19] MEDS: RESTORIL PO SCH (20:25)
[2018-12-20] MEDS: LOPRESSOR PO SCH ×4 (01:06→20:55)
[2018-12-20 06:03] LABS: CALCIUM 8.6 mg/dL (8.8-10.2); CREATININE 1.3 mg/dL (0.5-0.9); POTASSIUM 4.3 mmol/L (3.5-5.1)
[2018-12-20] MEDS: REGLAN IV SCH ×4 (06:09→23:57)
[2018-12-20] MEDS: NS 1,000 ML IV SCH ×2 (06:10→16:48)
[2018-12-20] MEDS ORDERED: CORTROSYN IV ONE (07:15)
[2018-12-20] MEDS: IMDUR PO SCH ×2 (07:33→08:09)
[2018-12-20] MEDS: LOVENOX SUBQ SCH ×2 (07:33→20:55)
[2018-12-20] MEDS: ASPIRIN EC PO SCH ×2 (07:33→08:08)
[2018-12-20] MEDS: PLAVIX PO SCH ×2 (07:33→08:09)
[2018-12-20] MEDS: CORDARONE PO SCH ×4 (07:33→16:49)
[2018-12-20] MEDS: COLACE PO SCH ×2 (07:33→08:08)
--- NOTE | 2018-12-20 09:29 | PROGRESS NOTE ---
DATE: 12/20/2018 VITAL SIGNS: Vital signs stable with temperature 97.8 degrees, heart rate irregular from 90 to 120, respiratory rate 16, blood pressure 128/70, O2 saturation on room air 98%. LABORATORY: Sodium continues to be low at 128. BUN and creatinine have improved a little at 57 and 1.3 respectively. Calcium is low at 8.6. IMAGING: Dr. Dowling's note yesterday indicated that if she continued to have atrial fibrillation, transesophageal echo and cardioversion will be considered. HOSPITAL COURSE: She continues to be weak and appetite is fair to poor. Hopefully, she will respond to some physical therapy today. PLAN: Plans are to send her back to rehab soon. cc: Arun Lugo MD
--- NOTE | 2018-12-20 15:39 | PROGRESS NOTE ---
DATE: 12/20/2018 CARDIOLOGY FOLLOW-UP NOTE: SUBJECTIVE: Patient continues without chest discomfort or dyspnea. She reports feeling weak/fatigued. OBJECTIVE: Vital Signs: Blood pressure 122/70, heart rate 109, with ECG showing persistent atrial fibrillation. Oxygen saturation 96% on nasal cannula oxygen. Neck: There is no significant jugular venous distention. Chest: Clear to auscultation. Cardiac: Exam reveals an irregular rate and rhythm without appreciable murmur or gallop. Extremities: Without edema. LABORATORY DATA: Includes sodium 128, potassium 4.3, chloride 96, carbon dioxide 21, BUN 57, creatinine 1.3. Cortrosyn stimulation test performed this morning demonstrates pre-Cortrosyn cortisol at 15.07 with a 60-minute post Cortrosyn of 35.17. Values consistent with adequate adrenal function. IMPRESSION: 1. Atrial fibrillation, persistent. 2. Recent atypical chest discomfort. Probably noncardiac. Serial troponins normal. 3. Atherosclerotic coronary disease. Patient is status post acute inferior posterior myocardial infarction 11/24/2018 and had emergent coronary angioplasty/stenting presumably of the right coronary artery in [facility]. Left ventricular ejection fraction on recent echocardiography normal. 4. Hypertension. RECOMMENDATIONS: 1. Continue amiodarone 200 mg p.o. t.i.d. 2. Continue Lovenox and adjust dose to 1 mg/kg subcutaneously q.12 given current level of renal function. 3. Continue metoprolol as needed for rate control. 4. Given persistence atrial fibrillation, we will schedule for STONEY cardioversion tomorrow. The rationale for pursuing STONEY cardioversion and potential hazards were reviewed with the patient, and she wished to proceed. cc: MD Arun Smith MD
[2018-12-20] MEDS: CRESTOR PO SCH (20:54)
[2018-12-20] MEDS: RESTORIL PO SCH (20:55)
[2018-12-20] MEDS: REMERON PO SCH (20:55)
[2018-12-21] MEDS: REGLAN IV SCH ×4 (05:27→23:16)
[2018-12-21] MEDS: LOPRESSOR PO SCH ×3 (05:28→21:39)
[2018-12-21] MEDS: NS 1,000 ML IV SCH ×4 (05:28→21:47)
--- NOTE | 2018-12-21 08:19 | PROGRESS NOTE ---
DATE: 12/21/2018 VITAL SIGNS: Temperature 98.1 degrees, heart rate irregular 90 to 120, blood pressure 101/52, O2 saturation on room air 95%. SUBJECTIVE: The patient is about the same. She rested poorly last night. Appetite is fair to poor. PLAN: She is to have a transesophageal procedure with cardioversion today per Cardiology. Lab will be rechecked tomorrow morning. Hopefully, she can be transferred to rehab tomorrow. Discussion will be made with Social Service regarding her need for additional rehab days. cc: Arun Lugo MD
[2018-12-21] MEDS: ASPIRIN EC PO SCH (08:32)
[2018-12-21] MEDS: CORDARONE PO SCH ×3 (08:32→21:39)
[2018-12-21] MEDS: IMDUR PO SCH (08:32)
[2018-12-21] MEDS: PLAVIX PO SCH (08:32)
[2018-12-21] MEDS: COLACE PO SCH (08:32)
[2018-12-21] MEDS ORDERED: DIPRIVAN 1% ONE (09:43)
[2018-12-21] MEDS ORDERED: ANESTHESIA PB SET 88 IN 5742 ONE (09:58)
[2018-12-21] MEDS ORDERED: XYLOCAINE 2% VISCOUS ONE (10:05)
--- NOTE | 2018-12-21 11:51 | EKG Report ---
Test Performed on : 12/21/2018 11:36:13 AM Test Reason : post STONEY cardioversion Blood Pressure : / mmHG Vent. Rate : 071 BPM Atrial Rate : 071 BPM P-R Int : 134 ms QRS Dur : 078 ms QT Int : 402 ms P-R-T Axes : 062 -13 -37 degrees QTc Int : 436 ms Normal sinus rhythm. Inferior infarct (cited on or before 14-AUG-2018) Abnormal ECG When compared with ECG of 14-DEC-2018 08:15, (Unconfirmed) No significant change was found Confirmed by Chapito Valente MD ([id number]) on 12/21/2018 4:13:49 PM
[2018-12-21] MEDS: LOVENOX SUBQ SCH ×2 (12:01→21:39)
--- NOTE | 2018-12-21 12:17 | CARDIAC CATH REPORT ---
PROCEDURE NAME: - INDICATION: Atrial fibrillation. PROCEDURE PERFORMED: Direct current cardioversion. PROCEDURE IN DETAIL: Ms. Rasheed was brought to the catheterization laboratory in fasting state. Informed consent was obtained. Prepped in usual fashion. She was anesthetized per usual protocol with anesthesia. STONEY was performed. No clot was visualized. The STONEY probe was removed. One shock was delivered in a synchronized fashion at 120 joules with conversion to sinus rhythm. The patient tolerated the procedure well without any complications. She will return to the floor for usual postprocedure monitoring. cc: MD Arun Holcomb MD
--- NOTE | 2018-12-21 19:29 | Transesophageal Echocardiogram ---
DATE: 12/21/2018 INDICATION: Atrial fibrillation. Evaluate prior to cardioversion. PROCEDURE DETAIL: Ms. Sanchez was brought to the catheterization laboratory in a fasting state. Informed consent was obtained. She was anesthetized with HurriCaine spray, and propofol sedation was administered per Anesthesia. After appropriate sedation, the STONEY probe was passed without difficulty. Images were obtained in multiple planes. At conclusion of procedure, the STONEY probe was removed without difficulty. No apparent complications. FINDINGS: 1. The right atrium appears normal in size. 2. Mild tricuspid regurgitation. 3. Normal RV size and systolic function. 4. No significant pulmonic insufficiency. 5. The left atrium does appear to be enlarged. The left atrial appendage and left atrium did not have any evidence of clot. Color Doppler evaluation as well as pulse-wave evaluation of the left atrial appendage did not demonstrate any clot. Pulse wave velocity was greater than 50 cm/sec on occasion. 6. No mitral valve prolapse. Mild mitral regurgitation. 7. The left ventricle appears to be normal in size. LV systolic function appeared preserved but was difficult to estimate based on the rapid heart rate that the patient had. Previous transthoracic echocardiogram this hospitalization demonstrated a preserved ejection fraction. 8. The aortic valve opens well. It is trileaflet. No evidence of stenosis or insufficiency. 9. The aorta had mild atherosclerosis in the descending thoracic aorta. 10. No pericardial effusion seen. cc: MD Ritesh Holcomb MD Robert Allen, MD
[2018-12-21] MEDS: REMERON PO SCH (21:39)
[2018-12-21] MEDS: CRESTOR PO SCH (21:39)
[2018-12-21] MEDS: RESTORIL PO SCH (21:39)
[2018-12-22] MEDS: NS 1,000 ML IV SCH ×2 (01:30→07:54)
[2018-12-22] MEDS: REGLAN IV SCH ×4 (05:45→23:35)
[2018-12-22 06:06] LABS: CALCIUM 8.1 mg/dL (8.8-10.2); CREATININE 1.1 mg/dL (0.5-0.9); POTASSIUM 4.1 mmol/L (3.5-5.1)
[2018-12-22] MEDS: LOPRESSOR PO SCH ×2 (08:57→21:28)
[2018-12-22] MEDS: ASPIRIN EC PO SCH (08:57)
[2018-12-22] MEDS: ELIQUIS PO SCH ×3 (08:57→21:28)
[2018-12-22] MEDS: COLACE PO SCH (08:57)
[2018-12-22] MEDS: CORDARONE PO SCH ×2 (08:57→21:28)
[2018-12-22] MEDS: IMDUR PO SCH (08:57)
[2018-12-22] MEDS: PLAVIX PO SCH (08:57)
--- NOTE | 2018-12-22 09:28 | PROGRESS NOTE ---
DATE: 12/22/2018 VITAL SIGNS: Vital signs stable with temperature 98.2 degrees, heart rate 76, sinus rhythm, respirations 22, blood pressure 132/56 and O2 saturation on room air 95%. LABORATORY: Improved with sodium 136, potassium 4.1, BUN 30, creatinine 1.1, calcium 8.1. She continues to be in sinus rhythm post cardioversion yesterday. She continues to feel weak and has a depressed affect. She is changed to Eliquis, and Lovenox is discontinued. She is also placed on saline lock. Dr. Dowling indicated he plans for her to stay the weekend, and then probably go to rehab first of next week. PLAN: Continue supportive care. She will continue physical therapy and hopefully she will be able to get up in a chair a couple of times today. cc: Arun Lugo MD
--- NOTE | 2018-12-22 18:40 | PROGRESS NOTE ---
DATE: 12/22/2018 SUBJECTIVE: The patient continues without chest discomfort or dyspnea. She continues to feel weak. She relates some abdominal discomfort. OBJECTIVE: Vital signs: Blood pressure 140/58, heart rate 72, ECG monitor showing sinus rhythm. Oxygen saturation 95%. There is no significant jugular venous distention. Chest is clear to auscultation. Cardiac exam reveals a regular rate and rhythm without appreciable murmur or gallop. Abdomen is mildly distended and somewhat firm. Bowel sounds are audible. Extremities are without edema. LABORATORY DATA: Includes a sodium 136, potassium 4.1, chloride 108, carbon dioxide 17, BUN 30, creatinine 1.1. IMPRESSION: 1. Paroxysmal atrial fibrillation. The patient continues in sinus rhythm following transesophageal echocardiogram cardioversion yesterday. 2. Recent atypical chest discomfort, probably noncardiac. Serial troponins normal. 3. Atherosclerotic coronary disease with acute inferoposterior myocardial infarction 11/24/2018, treated with emergent coronary angioplasty/stenting of the right coronary artery in [facility]. Left ventricular ejection fraction on recent echocardiography normal. 4. Hypertension. 5. Abdominal discomfort and distention. I suspect she may have significant constipation. RECOMMENDATIONS: 1. Continue amiodarone 200 mg p.o. b.i.d. for a few more days then 200 mg p.o. daily. 2. Continue metoprolol low dose. 3. Continue low-dose Eliquis. 4. Arrange abdominal x-ray. Consider initiating measures to remedy significant constipation with lactulose and possible Dulcolax. cc: MD Arun Smith MD
--- NOTE | 2018-12-22 20:27 | Diag Imaging Result Doc PS360 ---
EXAM: ABDOMEN FLAT/UPRIGHT INDICATION: abdominal distention TECHNIQUE: 2 views COMPARISON: 08/03/2018 FINDINGS: There is a small rectal fecal impaction. The diameter of the impacted rectum is up to 6.5 cm. There are nonspecific bowel gas patterns proximal to this. There is no definite obstructive bowel pattern. The abdomen is stable, otherwise. IMPRESSION: Rectal fecal impaction as described. Electronically signed by Cr Hurtado 12/22/2018 8:24 PM
[2018-12-22] MEDS: RESTORIL PO SCH (21:28)
[2018-12-22] MEDS: REMERON PO SCH (21:28)
[2018-12-22] MEDS: CRESTOR PO SCH (21:28)
[2018-12-23] MEDS: REGLAN IV SCH ×3 (06:11→17:25)
[2018-12-23] MEDS: COLACE PO SCH (09:28)
[2018-12-23] MEDS: ELIQUIS PO SCH ×2 (09:28→21:25)
[2018-12-23] MEDS: IMDUR PO SCH (09:28)
[2018-12-23] MEDS: PLAVIX PO SCH (09:29)
[2018-12-23] MEDS: LOPRESSOR PO SCH ×2 (09:29→21:25)
[2018-12-23] MEDS: CORDARONE PO SCH ×2 (09:29→21:25)
[2018-12-23] MEDS: ASPIRIN EC PO SCH (09:29)
[2018-12-23] MEDS: MILK OF MAGNESIA PO SCH ×2 (10:23→21:26)
[2018-12-23] MEDS: DULCOLAX PR SCH ×2 (10:23→21:25)
--- NOTE | 2018-12-23 12:07 | PROGRESS NOTE ---
DATE: 12/23/2018 SUBJECTIVE: Patient remains in CIC. She is still in sinus rhythm after having received cardioversion. She has a weak voice and appears to be quite listless, although she does answer questions. KUB was done by Cardiology yesterday and showed pronounced fecal impaction. She has been having a little watery stool daily. OBJECTIVE: Afebrile, pulse 71, respirations 17, blood pressure 121/51, O2 saturation on room air 96 percent. CV: RRR. Lungs: Distant breath sounds fairly clear. Abdomen: Soft. Active bowel sounds. There is stool palpable in the mid to lower abdomen prominently. Extremities: Trace to 1+ lower extremity edema. LABORATORY DATA: Reviewed from yesterday showing creatinine 1.1 and potassium 4.1. ASSESSMENT: 1. Atrial fibrillation status post cardioversion successfully yesterday, now with patient on Eliquis and amiodarone. 2. Fecal impaction. 3. CAD. 4. Hypercholesterolemia. 5. Peripheral vascular disease. PLAN: At this time, Cardiology has her on appropriate medicines for atrial fibrillation. We will work on her bowel movements. We will give her Milk of Magnesia 30 mL b.i.d. and Dulcolax suppositories [place] b.i.d. If unsuccessful, we will give her a fleets enema. We will try to do as little rectal stimulation as can be done due to her recent difficulties with dysrhythmias. cc: MD Arun Davey MD
--- NOTE | 2018-12-23 13:23 | CARDIOLOGY PROGRESS NOTE ---
DATE: 12/23/2018 CHIEF COMPLAINT: Irregular heartbeat, shortness of breath. SUBJECTIVE: Ms. Sanchez has no desire to eat. She is just lying in bed. She says that she has no chest pain. Her rhythm remains sinus. She was cardioverted yesterday. She could not sleep last night. She does not know why. She is not in any pain. She seems to be in a somber mood. OBJECTIVE: Blood pressure is 121/51, temperature 98 degrees, pulse 71, respirations 17. She is awake, alert. She appears to be chronically ill, pale. There is swelling in her hands. She appears to be somewhat malnourished, probably cachectic. Chest: Diminished breath sounds at bases. Heart sounds are regular and rhythmic. I do not hear gallop or murmur. Her abdomen is nontender. Extremities showed some diffuse edema. DIAGNOSTIC DATA: Her chest x-ray from 12/15/2018 has report that is indicating blunting of the left costophrenic angle. Abdominal x-ray from yesterday shows rectal fecal impaction. Her laboratory studies from yesterday show sodium 136, potassium 4.1, BUN is 30 , creatinine 1.1. IMPRESSION: 1. The patient has paroxysmal atrial fibrillation, status post cardioversion. She has remained in sinus rhythm. 2. Fecal impaction. 3. History of coronary artery disease. Previous myocardial infarction in 2018. 4. Atypical chest discomfort. 5. Depression? RECOMMENDATIONS: At this point in time, cardiac amador she is stable. The most pressing issue is that she seems to have fecal impaction. This needs to be addressed. The patient appears to be cachectic, chronically ill. We will follow her as needed. cc: MD Arun Billingsley MD MTDD
[2018-12-23] MEDS ORDERED: CALMOSEPTINE OINTMENT TOP PRN (15:40)
[2018-12-23] MEDS ORDERED: ANUSOL-HC CREAM PR PRN (17:58)
[2018-12-23] MEDS: RESTORIL PO SCH (21:25)
[2018-12-23] MEDS: ZOLOFT PO SCH (21:25)
[2018-12-23] MEDS: REMERON PO SCH (21:26)
[2018-12-23] MEDS: CRESTOR PO SCH (21:26)
[2018-12-24] MEDS: REGLAN IV SCH ×4 (00:24→17:18)
[2018-12-24] MEDS: MILK OF MAGNESIA PO SCH ×3 (04:10→22:44)
[2018-12-24] MEDS: DULCOLAX PR SCH ×2 (04:11→08:57)
[2018-12-24] MEDS: ELIQUIS PO SCH ×2 (08:56→20:55)
[2018-12-24] MEDS: ASPIRIN EC PO SCH (08:56)
[2018-12-24] MEDS: PLAVIX PO SCH (08:56)
[2018-12-24] MEDS: IMDUR PO SCH (08:56)
[2018-12-24] MEDS: LOPRESSOR PO SCH ×3 (08:56→20:55)
[2018-12-24] MEDS: CORDARONE PO SCH ×2 (08:56→20:56)
[2018-12-24] MEDS ORDERED: LOPRESSOR 10 MG in NS 50 ML IV ONE (09:54)
--- NOTE | 2018-12-24 10:23 | PROGRESS NOTE ---
DATE: 12/24/2018 SUBJECTIVE: The patient remains somewhat unmotivated, and has a weak voice. She did have successful bowel movements yesterday at least four of these, and had some blood with these as she is on Eliquis and she has hemorrhoids. The patient has redeveloped some atrial fibrillation. OBJECTIVE: Vital Signs: Afebrile, pulse 66, respirations 16, blood pressure 147/66 and O2 saturation 90% on room air. CV: Irregularly irregular. Lungs: CTA. Abdomen: Soft. Active bowel sounds. Much less distended in the lower abdomen. No distinct palpable stool today. Overall improvement in constipation on exam. Extremities: No calf tenderness, cords or edema. Neurologic: Cranial nerves are intact. No focal deficits. ASSESSMENT: 1. Recurrent atrial fibrillation on treatment per Cardiology, status post cardioversion previously successful now back in atrial fibrillation. 2. Fecal impaction with some improvement with treatment with laxatives. 3. Coronary artery disease. 4. Hypercholesterolemia. 5. Peripheral vascular disease. 6. External hemorrhoids. 7. Grossly heme positive stools hopefully related to her hemorrhoids. 8. Depression. PLAN: We will stop the Dulcolax suppositories but continue Milk of Magnesia x2 more doses today. She may be able to be switched over to MiraLAX daily. Repeat KUB. Check labs today and tomorrow to include CBC and BMP especially to evaluate for anemia. We had placed her on Zoloft for depression yesterday, and she remains on Remeron. We have gotten the Anusol HC cream ordered as needed. She is on Plavix and Eliquis due to the atrial fibrillation and CAD. I am also going to place her on a PPI for prophylaxis of peptic ulcer disease. cc: MD Arun Davey MD
[2018-12-24] MEDS: PROTONIX PO SCH (10:26)
[2018-12-24 10:42] LABS: BASO# 0.08 X1000 (0.0-0.2); BASO% 0.9 % (0.0-0.8); EOS# 1.01 X1000 (0.0-0.7); EOS% 11.6 % (0.0-10.0); HEMATOCRIT 29.5 % (37.0-47.0); HEMOGLOBIN 9.1 g/dL (12.0-16.0); IMM GRAN# 0.03 X1000 (0.0-0.04); IMM GRAN% 0.3 % (0.0-0.5); LYMPH# 1.66 X1000 (1.2-3.4); MCH 26.9 PG (27-31); MCHC 30.8 g/dL (33-37); MCV 87.3 FL (81-99); MONO# 1.03 X1000 (0.11-0.59); MONO% 11.8 % (1.7-9.3); MPV 11.1 FL (7.4-10.4); NEUT# 4.93 X1000 (1.4-6.5); NEUT% 56.4 % (42.2-75.2); PLT 245 X1000 (130-400); RBC 3.38 XMIL (4.2-5.4); RDW 13.9 % (11.5-14.5); WBC 8.74 X1000 (4.8-10.8)
[2018-12-24 10:47] LABS: CREATININE 1.1 mg/dL (0.5-0.9); POTASSIUM 3.6 mmol/L (3.5-5.1)
--- NOTE | 2018-12-24 11:04 | CARDIOLOGY PROGRESS NOTE ---
DATE: 12/24/2018 SUBJECTIVE: Ms. Sanchez is feeling somewhat better today. She says that she has moved her bowels; however, this morning at about 9:00, she flipped back into atrial fibrillation with rapid response. OBJECTIVE: Her heart rate is about 140 now, blood pressure 147/66, temperature 97.8, respirations 18. She appears to be chronically ill. HEENT is unremarkable. Chest: Diminished breath sounds at bases. Heart sounds irregularly irregular, rapid. Abdomen is tender in the hypogastric area. Extremities showed decreased pulses, trace edema. Neurologic: Follows commands. Moves all 4 extremities. IMPRESSION: 1. The patient is with paroxysmal atrial fibrillation. 2. The patient is with constipation. 3. History of coronary heart disease. 4. Atypical chest discomfort. 5. Transient kidney dysfunction. RECOMMENDATIONS: At this time, we will give her metoprolol 10 mg IV. We will make it 25 every 6 hours by mouth, and I will see how she does. If she remains in atrial fibrillation, we may have to put her back on Cardizem. Her GI situation needs to be reassessed and perhaps would be a good idea to consult with store clerk cashier. cc: MD Arun Billingsley MD
--- NOTE | 2018-12-24 12:20 | Diag Imaging Result Doc PS360 ---
EXAM: KUB ABDOMEN INDICATION: constipation TECHNIQUE: One view COMPARISON: 12/22/2018 FINDINGS: The rectal fecal impaction seen on the previous study is no longer present. There is no radiographic evidence of significant constipation on the current study. There is patchy colonic gas. There is no obstructive bowel pattern. There is no evidence of large volume free abdominal gas. IMPRESSION: Interval resolution of the rectal fecal impaction seen previously. Electronically signed by Cr Hurtado 12/24/2018 12:18 PM
[2018-12-24] MEDS: ZOLOFT PO SCH (20:55)
[2018-12-24] MEDS: RESTORIL PO SCH (20:55)
[2018-12-24] MEDS: REMERON PO SCH (20:56)
[2018-12-24] MEDS: CRESTOR PO SCH (20:56)
[2018-12-25] MEDS: REGLAN IV SCH ×3 (00:45→12:20)
[2018-12-25] MEDS: LOPRESSOR PO SCH ×4 (03:02→23:26)
[2018-12-25 05:25] LABS: HEMATOCRIT 27.4 % (37.0-47.0); HEMOGLOBIN 8.5 g/dL (12.0-16.0); MCH 27.4 PG (27-31); MCV 88.4 FL (81-99); MPV 11.2 FL (7.4-10.4); RBC 3.1 XMIL (4.2-5.4); RDW 14.1 % (11.5-14.5); WBC 6.61 X1000 (4.8-10.8)
[2018-12-25 05:50] LABS: CALCIUM 8.6 mg/dL (8.8-10.2); CREATININE 1.1 mg/dL (0.5-0.9); POTASSIUM 4.1 mmol/L (3.5-5.1)
--- NOTE | 2018-12-25 07:20 | EKG Report ---
Test Performed on : 12/24/2018 12:55:43 PM Test Reason : converted back to SR Blood Pressure : / mmHG Vent. Rate : 059 BPM Atrial Rate : 059 BPM P-R Int : 128 ms QRS Dur : 076 ms QT Int : 434 ms P-R-T Axes : 041 -15 -37 degrees QTc Int : 429 ms Sinus bradycardia. Low voltage QRS Inferior infarct (cited on or before 14-AUG-2018) Cannot rule out Anterior infarct , age undetermined Abnormal ECG When compared with ECG of 21-DEC-2018 11:36, No significant change was found Unconfirmed Result
--- NOTE | 2018-12-25 08:34 | PROGRESS NOTE ---
DATE: 12/25/2018 OBJECTIVE: Vital signs: Stable with temperature 97.6 degrees, heart rate 61, respirations 16, blood pressure 141/58. O2 saturation on room air 92%. The patient continues to be bedridden with little movement despite physical therapy orders. Appetite is fair. She has had a drop in her hemoglobin from 11 to 8. Stool is heme-positive. She had some impaction problems over the weekend, and was placed on MiraLAX. She had a liquid maroon stool yesterday. LABORATORY: Hemoglobin 8.5, hematocrit 27.4, white blood count 6600. Sodium 140, potassium 4.1, BUN 21, creatinine 1.1, calcium 8.6. ASSESSMENT AND PLAN: Her GI blood loss may be related to her anticoagulation. Hematocrit will be rechecked tomorrow. If she remains stable, rehab will be considered tomorrow cc: Arun Lugo MD
[2018-12-25] MEDS: ELIQUIS PO SCH ×2 (08:51→21:55)
[2018-12-25] MEDS: CORDARONE PO SCH ×2 (08:51→21:56)
[2018-12-25] MEDS: PROTONIX PO SCH (08:51)
[2018-12-25] MEDS: PLAVIX PO SCH (08:51)
[2018-12-25] MEDS: IMDUR PO SCH (08:51)
[2018-12-25] MEDS: ASPIRIN EC PO SCH (08:51)
[2018-12-25] MEDS: REGLAN PO SCH ×2 (16:54→21:56)
[2018-12-25] MEDS: RESTORIL PO SCH (21:55)
[2018-12-25] MEDS: REMERON PO SCH (21:55)
[2018-12-25] MEDS: CRESTOR PO SCH (21:55)
[2018-12-25] MEDS: ZOLOFT PO SCH (21:56)
[2018-12-26] MEDS: LOPRESSOR PO SCH ×4 (03:40→21:18)
[2018-12-26 05:34] LABS: HEMATOCRIT 26.5 % (37.0-47.0); HEMOGLOBIN 8.1 g/dL (12.0-16.0)
[2018-12-26] MEDS: REGLAN PO SCH ×5 (06:36→21:18)
[2018-12-26] MEDS: PROTONIX PO SCH (08:22)
[2018-12-26] MEDS: CORDARONE PO SCH ×2 (08:22→21:19)
[2018-12-26] MEDS: IMDUR PO SCH (08:22)
--- NOTE | 2018-12-26 08:32 | PROGRESS NOTE ---
DATE: 12/26/2018 OBJECTIVE: Vital signs stable with temperature 97.7 degrees, heart rate 59, respirations 16, blood pressure 145/57, O2 saturation on room air 93%. LABORATORY DATA: Hemoglobin 8.1, hematocrit 26.5. The patient has had no melena or hematochezia, but did drop her hematocrit an additional point. PLAN: With her history of coronary artery disease, recent heart attack, and risk for vascular problems, transfusion with 1 unit of packed red blood cells is indicated. GI consultation is obtained and anticoagulants are discontinued. Hematocrit will be rechecked tomorrow. She may need endoscopy prior to transfer to rehab. This will be decided in consultation with GI, Dr. Smart. Repeat stool for blood will be checked. cc: Arun Lugo MD
[2018-12-26] MEDS ORDERED: NS 500 ML ONE ×2 (11:11→17:40)
[2018-12-26] MEDS ORDERED: NS 250 ML ONE (13:58)
[2018-12-26] MEDS ORDERED: SODIUM CHLORIDE 0.9% INJ SCH (14:00)
[2018-12-26 14:06] LABS: INR 1.5; PROTIME 19.3 Seconds (11.0-16.0)
--- NOTE | 2018-12-26 14:17 | GASTROENTEROLOGY CONSULTATION ---
DATE: 12/26/2018 REASON FOR CONSULTATION: rectal bleeding HISTORY OF PRESENT ILLNESS: Mrs. Erica Sanchez is an 83-year-old woman with a past medical history significant for hypertension, hyperlipidemia, paroxysmal atrial fibrillation, status post cardioversion x2, recent anterior-inferior posterior IN on November 24 requiring emergent coronary angioplasty and stent placement of the right coronary at [facility], who re- presented here on 12/14 with recurrent left-sided chest pain that feels worse on inspiration. During her hospitalization she had persistent with atrial fibrillation and underwent recurrent left heart catheterization and cardioversion. Over the last couple of days the patient has complained of some abdominal discomfort, constipation, and is noted to have a decreasing hemoglobin with some blood in her stools, thought to be related to hemorrhoids. Her aspirin, Eliquis , and Plavix were held in the setting of declining hemoglobin. The patient currently denies any chest pain, shortness of breath, abdominal pain, nausea, vomiting, melena. She says that she has never had any history of rectal bleeding in the past and has had a colonoscopy in the past but cannot remember when it was done. PAST MEDICAL HISTORY: Hypertension, hyperlipidemia, coronary artery disease, status post IN in November 2018, paroxysmal atrial fibrillation. PAST SURGICAL HISTORY: Partial hysterectomy, cholecystectomy, left carotid endarterectomy. ALLERGIES: She is allergic to penicillin. FAMILY HISTORY: No family history of GI malignancies. SOCIAL HISTORY: No alcohol, smoking, or drug use. REVIEW OF SYSTEMS: As per HPI, otherwise 12 point review of systems negative. PHYSICAL EXAMINATION: Vital Signs: Temperature 98.0 degrees, heart rate 53, respiratory rate 18, blood pressure 122/52, O2 saturation 97% on room air. General: The patient is awake, alert, oriented, no acute distress. She is slightly confused with giving a history. HEENT: Sclerae anicteric. Moist mucous membranes. Neck: No JVD. No lymphadenopathy. Cardiac: Regular rate and rhythm. No murmurs, rubs, or gallops. Lungs: Clear to auscultation bilaterally. Abdomen: Soft, nontender, nondistended. Normoactive bowel sounds. Extremities: No clubbing, cyanosis, or edema. Neurologic: Nonfocal. LABS: White count of 6.6, hemoglobin 8.1, platelets of 227,000. Sodium 140, potassium 4.1, chloride 108, bicarb 23, BUN 21, creatinine 1.1. KUB on 12/24 shows interval resolution of rectal fecal impaction. ASSESSMENT AND PLAN: Mrs. Erica Sanchez is an 83-year-old woman with pAFIB and recent admission for acute [place], status post angioplasty and stent placement on 3 antiplatelet agents including Plavix, Eliquis, and aspirin, who presents with new onset rectal bleeding. Differential of her rectal bleeding includes hemorrhoids, polyps, angiodysplasia, cannot rule out malignancy. The patient does not report any upper GI symptoms, although if the patient will require prolonged antiplatelet therapy for her CAD, we should do an upper endoscopy and colonoscopy prior to discharge for risk stratification. She is currently on a regular cardiac diet currently. We will start her on clear liquids today and plan for diagnostic EGD and colonoscopy on with Cardiology approval. In the meantime, we will continue to trend her hemoglobin/hematocrit , and transfuse as needed to maintain a hemoglobin between 8 and 9 given her underlying CAD. She currently is not having any chest pain or symptoms of acute coronary syndrome. We are holding all of her antiplatelet agents. The rest of her labs are unremarkable. The only other issue that she complains of is constipation for which she was receiving MiraLAX. She is currently on pantoprazole 40 mg by mouth once daily, which I will increase to twice a day for now. Thank you for this consult. Please call with any questions or concerns. cc: Arun Lugo MD MTDRitchie
[2018-12-26] MEDS: PROTONIX IV SCH (16:30)
[2018-12-26] MEDS: RESTORIL PO SCH (21:18)
[2018-12-26] MEDS: CRESTOR PO SCH (21:18)
[2018-12-26] MEDS: REMERON PO SCH (21:19)
[2018-12-26] MEDS: ZOLOFT PO SCH (21:19)
[2018-12-27] MEDS: PROTONIX IV SCH ×2 (02:03→14:02)
[2018-12-27] MEDS: LOPRESSOR PO SCH ×4 (02:04→21:03)
[2018-12-27] MEDS: REGLAN PO SCH ×5 (05:33→21:03)
--- NOTE | 2018-12-27 07:56 | PROGRESS NOTE ---
DATE: 12/27/2018 SUBJECTIVE/OBJECTIVE: Vital signs: Temperature 99.9 degrees, heart rate 65, respirations 23, blood pressure 104/42, and O2 saturation on room air 91%. Hematocrit increased to 28.9. The patient is somnolent and in no distress. Chest is clear. Abdomen is soft. She had a liquid brown stool last evening. Stool was heme positive yesterday. PLAN: Endoscopy tomorrow to identify source of bleeding. Rehab will be considered for Tuesday. cc: Arun Lugo MD
[2018-12-27] MEDS: CORDARONE PO SCH ×2 (08:34→21:03)
[2018-12-27] MEDS: IMDUR PO SCH (08:34)
--- NOTE | 2018-12-27 15:13 | PROVIDER PROGRESS NOTE ---
Progress Note - - 12/27/2018 SUBJECTIVE: No acute overnight events. No N/V/F, CP, SOB, abdominal pain, rectal bleeding, or melena. On clears. OBJECTIVE: Last Vital Signs Temp 98.4 F 12/27/18 12:00 Pulse 60 12/27/18 12:00 Resp 16 12/27/18 12:00 BP 108/41 12/27/18 12:00 Pulse Ox 97 12/27/18 12:00 Height 5 ft 2 in Weight 136 lb GEN: awake, alert, NAD HEENT: anicteric, MMM NECK: supple; no jvd CV: RRR, no murmurs PULM: CTAB, no wheezing ABD: soft NT/ND, NABS EXT: no cce NEURO: nonfocal LABS: 12/26/18 12/27/18 13:12 05:05 Hct 28.9 L INR 1.50 A/P: Mrs. Erica Sanchez is an 83-year-old woman with pAFIB and CAD s/p recent ID s/p angioplasty and stent placement on triple antiplatelet therapy who presents with acute blood loss anemia with rectal bleeding. HCT remained stable off of blood thinners. INR on 12/26 was 1.5. Plan for diagnostic EGD and colonoscopy tomorrow for risk stratification given need for antiplatelet agents. No CP or CP. On PPI BID. #Blood loss anemia: on PPI; prep with 4L of golytely today; NPO after MN for bidirectional endoscopy by Dr. Smart tomorrow #CAD: holding blood thinners; no CP; cardiology following #pAFIB: s/p cardioversion; rate-controlled #Constipation: on miralax; recieving bowel prep today Will follow with you. Please call with questions or concerns
[2018-12-27] MEDS ORDERED: GOLYTELY PO ONE (18:00)
[2018-12-27] MEDS: CRESTOR PO SCH (21:03)
[2018-12-27] MEDS: RESTORIL PO SCH (21:03)
[2018-12-27] MEDS: ZOLOFT PO SCH (21:03)
[2018-12-27] MEDS: REMERON PO SCH (21:03)
[2018-12-28] MEDS: PROTONIX IV SCH ×2 (01:18→13:52)
[2018-12-28] MEDS: LOPRESSOR PO SCH ×4 (02:04→20:30)
[2018-12-28] MEDS: REGLAN PO SCH ×4 (06:22→20:29)
--- NOTE | 2018-12-28 08:15 | PROGRESS NOTE ---
DATE: 12/28/2018 Vital signs stable with temperature 97.6 degrees, heart rate 65, respirations 15, and blood pressure 143/55. O2 saturation on room air 100%. Patient is somnolent, complaining of no pain. Chest is clear. Abdomen is soft. She slept poorly because of the GI prep for her endoscopy today. PLAN: Endoscopy to rule out source of GI bleeding. Rehab will be considered tomorrow. cc: Arun Lugo MD
[2018-12-28] MEDS ORDERED: VITAMIN K 10 MG in NS 50 ML IV ONE (08:30)
[2018-12-28] MEDS ORDERED: DIPRIVAN 1% ONE ×2 (11:06→11:07)
[2018-12-28] MEDS ORDERED: FENTANYL ONE (11:09)
[2018-12-28] MEDS ORDERED: EPHEDRINE ONE (11:33)
[2018-12-28] MEDS: CORDARONE PO SCH (12:17)
[2018-12-28] MEDS: IMDUR PO SCH (12:18)
--- NOTE | 2018-12-28 12:19 | OPERATIVE NOTE ---
PROCEDURE DATE: 12/28/2018 SURGEON: Dr. Arun Lugo. TITLE OF PROCEDURE: 1. Esophagogastroscopy with gastric biopsy 2. ileal colonoscopy with cecal polyp resection. PREOPERATIVE DIAGNOSIS: Anemia. POSTOPERATIVE DIAGNOSES: 1. Normal esophagus, entire length. 2. Z-line was at 40 cm. 3. Evidence of gastritis. This was biopsied to evaluate for Helicobacter pylori. 4. Normal fundus, cardia, incisura. There was evidence of duodenitis and duodenal ulcer in the bulb measuring about 5 to 6 mm. 5. Normal second portion of the duodenum. 6. Normal terminal ileum. 7. Polyp measuring about 5 mm in the cecum, which was removed using cold biopsy polypectomy. 8. Diverticulosis in the descending sigmoid colon, moderate degree. 9. Internal hemorrhoids grade 1. ESTIMATED BLOOD LOSS: Minimal. COMPLICATIONS: None. ANESTHESIA: Monitored anesthesia care per the anesthesiologist. SPECIMENS: 1. Random gastric biopsy. 2. Cecal polyp. DESCRIPTION OF PROCEDURE IN DETAIL: Informed consent was given to the patient that explained the risks, benefits, indications, and alternatives to the procedure. The patient was prepared for EGD and colonoscopy. The risks of the procedure including infection, bleeding, pain, trauma to the surrounding structures, perforation, , were explained to the patient among others, and she acknowledged and agreed to proceed with the procedure. The patient was brought to the OR. She was turned in the left position. A bite block was placed. After adequate monitored anesthesia, the esophagoscope was advanced all the way to the second portion of the duodenum. The esophagus was normal in its entire length. The Z- line was at 40 cm. Stomach showed evidence of erythema in the body and this was biopsied to rule out H pylori. Retroflexion of normal fundus, cardia, incisura was done. The duodenal bulb showed evidence of duodenitis and duodenal ulcer measuring 5 mm. There was no evidence of any active bleeding or any clot or visible vessel. The second portion of the duodenum appeared normal. The air was withdrawn. The patient was turned around. Rectal exam was performed, which revealed normal rectal tone. No masses felt. No blood on the examining finger. The colonoscope was introduced into the anus and was advanced all the way to the terminal ileum. Terminal ileum was normal. Cecum showed evidence of a polyp measuring about 5 mm. This was biopsied. This was removed using cold biopsy polypectomy. There was evidence of diverticulosis in the descending and sigmoid colon with fecaliths. The area was lavaged. I did not visualize any evidence of active bleeding, fresh or old blood in the entire colon. I did not visualize any evidence of colitis or any AVM's. Retroflexion in the rectum revealed internal hemorrhoids grade 1. The air was withdrawn. The patient tolerated the procedure well and went to the recovery room in stable condition. RECOMMENDATION: 1. Patient will be on Protonix once daily for 3 months and then wean down to Zantac 150 mg p.o. b.i.d. 2. Patient will be on Metamucil 1 tablespoon p.o. at bedtime. 3. We will start her on Iron C b.i.d. for 3 months. The patient is on Centrum Silver once daily for 3 months. 4. The patient will be on gastroesophageal reflux changes, avoid any NSAIDs. The patient will follow up in the clinic in 3 weeks after discharge to review the biopsy results. Further recommendations pending the hospital course. Please feel free to contact us if you have any questions. cc: MD Arun Craig MD MTDD
[2018-12-28] MEDS ORDERED: ASPIRIN PO STA (14:35)
[2018-12-28] MEDS ORDERED: PLAVIX PO ONE (14:35)
--- NOTE | 2018-12-28 15:00 | CARDIOLOGY PROGRESS NOTE ---
DATE: 12/28/2018 SUBJECTIVE: Patient continues without chest discomfort or dyspnea on room air. OBJECTIVE: Vital signs: Blood pressure 133/49, heart rate 67 and regular. Oxygen saturation 98% on room air. Neck: There is no significant jugular venous distention. Chest: Clear to auscultation. Cardiac Exam: Reveals a regular rate and rhythm without appreciable murmur or gallop. Extremities: Without edema. LABORATORY DATA: Includes a hematocrit 28.9. IMPRESSION: 1. Paroxysmal atrial fibrillation. Patient continues in sinus rhythm following STONEY cardioversion last week. 2. Recent atypical chest discomfort. Probably noncardiac. Serial troponins normal. 3. Atherosclerotic coronary disease with acute inferior posterior myocardial infarction 11/24/2018 treated with emergent coronary angioplasty/stenting of he right coronary in [facility]. Left ventricle ejection fraction normal on recent echocardiography. Patient continues without angina. 4. Hypertension. 5. Recent problems with constipation and fecal impaction now improved. RECOMMENDATIONS: 1. Reduce amiodarone 200 mg p.o. daily. 2. Continue low-dose metoprolol. 3. Continue low-dose Eliquis. 4. Continue dual anti-platelet therapy without interruption. cc: MD Arun Smith MD
[2018-12-28] MEDS: PLAVIX PO SCH (15:01)
[2018-12-28] MEDS: ASPIRIN PO SCH (15:01)
[2018-12-28] MEDS: ICAR-C PO SCH (20:29)
[2018-12-28] MEDS: CRESTOR PO SCH (20:29)
[2018-12-28] MEDS: ZOLOFT PO SCH (20:29)
[2018-12-28] MEDS: METAMUCIL POWDER PACKET PO SCH (20:29)
[2018-12-28] MEDS: REMERON PO SCH (20:29)
[2018-12-28] MEDS: RESTORIL PO SCH (20:30)
[2018-12-29] MEDS: PROTONIX IV SCH ×2 (01:14→15:52)
[2018-12-29] MEDS: LOPRESSOR PO SCH ×4 (04:45→21:44)
[2018-12-29] MEDS: REGLAN PO SCH ×4 (05:48→15:52)
--- NOTE | 2018-12-29 08:06 | PROGRESS NOTE ---
DATE: 12/29/2018 Vital signs show temperature 98.1 degrees, heart rate 68, respirations 16, blood pressure 114/57, and O2 saturation on room air 95%. The patient was more alert and conversive last evening. She is somnolent this morning. She rested better last night compared to the night before when she had GI prep for endoscopy. Endoscopic results revealed gastritis, duodenitis, and small duodenal ulcer, and one colon polyp which was removed. Hematocrit is 28.1 this morning. She has had no more evidence of GI bleeding. Cardiology restarted the Plavix and 81 mg of aspirin. Low-dose Eliquis was recommended. This is restarted. She will be kept over the weekend to watch for recurrence of GI bleeding. Rehab is planned for Tuesday. cc: Arun Lugo MD
[2018-12-29] MEDS: IMDUR PO SCH (08:26)
[2018-12-29] MEDS: ICAR-C PO SCH ×2 (08:27→21:45)
[2018-12-29] MEDS: PLAVIX PO SCH (08:27)
[2018-12-29] MEDS: ASPIRIN PO SCH (08:27)
[2018-12-29] MEDS: CORDARONE PO SCH (08:27)
[2018-12-29] MEDS: CENTRUM SILVER PO SCH (08:27)
--- NOTE | 2018-12-29 18:36 | PROVIDER PROGRESS NOTE ---
Progress Note - - 12/29/2018 SUBJECTIVE: No acute overnight events. No N/V/F, CP, SOB, abdominal pain, rectal bleeding. +BMs OBJECTIVE: Last Vital Signs Temp 98.6 F 12/29/18 16:00 Pulse 65 12/29/18 16:00 Resp 15 12/29/18 16:00 BP 120/53 12/29/18 16:00 Pulse Ox 95 12/29/18 16:00 Height 5 ft 2 in Weight 132 lb 1.6 oz GEN: pleaseant, NAD HEENT: anicteric, MMM NECK: supple, no jvd PULM: CTAB no wheezing CV: RRR, no murmurs ABD: soft NT/ND, NABS EXT: no cce NEURO: nonfocal LABS: 12/29/18 04:51 Hct 28.1 L POSTOPERATIVE DIAGNOSES: 1. Normal esophagus, entire length. 2. Z-line was at 40 cm. 3. Evidence of gastritis. This was biopsied to evaluate for Helicobacter pylori. 4. Normal fundus, cardia, incisura. There was evidence of duodenitis and duodenal ulcer in the bulb measuring about 5 to 6 mm. 5. Normal second portion of the duodenum. 6. Normal terminal ileum. 7. Polyp measuring about 5 mm in the cecum, which was removed using cold biopsy polypectomy. 8. Diverticulosis in the descending sigmoid colon, moderate degree. 9. Internal hemorrhoids grade 1. A/P: A/P: Mrs. Erica Sanchez is an 83-year-old woman with pAFIB and CAD s/p recent [place] s/p angioplasty and stent placement on triple antiplatelet therapy who presents with acute blood loss anemia with rectal bleeding. EGD/colonoscopy showed gastritis, duodenitis, and superficial duodenal bulb ulcer. Colonoscopy showed diverticulosis, hemorrhoids and small polyp (resected). Gastric biopsies pending. #Blood loss anemia: hgb stable; no overt bleeding; continue PPI PO BID; trend H/H qdaily #Gastritis/duodenitis/PUD: PPI as above; avoiding NSAIDs #CAD s/p recent [place]: restarted on plavix, ASA 81 #pAFIB: rate-controlled; restarted on Eliquis #Diverticulosis/hemorrhoids: on supplemental fiber; stopped reglan given side effect risk profile Will sign off. Follow-up in clinic in 2-4 weeks upon discharge. Please call with questions or concerns
--- NOTE | 2018-12-29 19:18 | PROGRESS NOTE ---
DATE: 12/29/2018 SUBJECTIVE: Patient continues without chest discomfort or dyspnea. She reports feeling gradually stronger. OBJECTIVE: Vital Signs: Blood pressure 120/53, heart rate 65 and regular with ECG monitor showing sinus rhythm. Oxygen saturation 95% on room air. Neck: There is no significant jugular venous distention. Chest: Clear to auscultation. Cardiac exam: A regular rate and rhythm without appreciable murmur or gallop. There is no evidence of peripheral edema. LABORATORY DATA: Includes hematocrit 28.1. IMPRESSION: 1. Paroxysmal atrial fibrillation. Patient continues in sinus rhythm following STONEY cardioversion and continues on amiodarone. 2. Recent atypical chest discomfort. Probably noncardiac. Serial troponins normal. 3. Atherosclerotic coronary disease with acute inferoposterior myocardial infarction 11/24/2018 treated with emergent coronary angioplasty/stenting of the right coronary artery with drug- eluting stent. Left ventricular ejection fraction on normal recent echocardiography. Patient continues without angina. 4. Recent upper GI endoscopy indicating gastritis, duodenitis and small duodenal ulcer without evidence of bleeding. 5. Hypertension. RECOMMENDATIONS: 1. Continue amiodarone 200 mg p.o. daily. 2. Continue low-dose metoprolol. 3. Given fairly recent drug-eluting stent, need to continue dual antiplatelet therapy with aspirin and Plavix without interruption. 4. In light of recent difficulty with GI blood loss and endoscopy showing small duodenal ulcer, it would appear best to hold off on resuming Eliquis and consider this after she has had sufficient times to heal her ulcer, perhaps in two months. This was discussed with the patient. cc: MD Arun Smith MD
[2018-12-29] MEDS: METAMUCIL POWDER PACKET PO SCH (21:45)
[2018-12-29] MEDS: ZOLOFT PO SCH (21:45)
[2018-12-29] MEDS: CRESTOR PO SCH (21:45)
[2018-12-29] MEDS: RESTORIL PO SCH (21:45)
[2018-12-29] MEDS: REMERON PO SCH (21:45)
[2018-12-30] MEDS: LOPRESSOR PO SCH ×3 (03:07→21:34)
[2018-12-30] MEDS: IMDUR PO SCH (09:00)
[2018-12-30] MEDS: PLAVIX PO SCH (09:00)
[2018-12-30] MEDS: ICAR-C PO SCH ×2 (09:00→21:34)
[2018-12-30] MEDS: ASPIRIN PO SCH (09:00)
[2018-12-30] MEDS: CENTRUM SILVER PO SCH (09:00)
[2018-12-30] MEDS: CORDARONE PO SCH (09:00)
[2018-12-30] MEDS: PROTONIX IV SCH ×2 (09:04→21:44)
--- NOTE | 2018-12-30 17:38 | PROGRESS NOTE ---
DATE: 12/30/2018 SUBJECTIVE: An 83-year-old white female patient of Dr. Arun Lugo admitted to the hospital on 12/14/2018 with chest pains. She recently had a stent placed in [facility]. She also has elevated proBNP, left pleural effusion, intermittent atrial fibrillation. Interval history was reviewed. The patient was seen by bagman/woman and doweler. As per the reports, the patient had a stent placed in the RCA. In the past she had cardioversion for atrial fibrillation. During this hospital course the patient has had persistent atrial fibrillation, for which Lovenox and Cordarone was given. Metoprolol for rate control. The patient is in sinus rhythm following cardioversion. Patient was started on amiodarone 200 daily, metoprolol low dose and Eliquis. She was complicated by constipation. The patient was given laxatives. Subsequently the patient was seen by GI, by Dr. Smart and Dr. Paulino. She developed a GI bleed, acute blood loss anemia. The patient received 2 units of packed RBCs. EGD findings noted evidence of gastritis and a duodenal ulcer in the bowel about 5 to 6 mm. Colonoscopy has diverticulosis, with internal hemorrhoids grade 1. Today the patient is doing well. Her eyes are a little bit red. No other complaints. PAST MEDICAL HISTORY: Reviewed. PAST SURGICAL HISTORY: Reviewed. MEDICINES: Reviewed. ALLERGIES: Penicillin. REVIEW OF SYSTEMS: None reported. OBJECTIVE: On exam, temperature is 98.7 degrees, pulse is 50, blood pressure is 108/56, 95% on room air. HEENT exam: Right eye is slightly red. Neck is supple. Chest shows bilateral air entry. Heart sounds are regular. No murmur. Belly is soft, nontender. No peripheral edema. LABORATORY DATA: Hematocrit was 28. ASSESSMENT AND PLAN: 1. Coronary artery disease, status post angioplasty and stent in the right coronary artery. Continue aspirin 81 mg daily, Plavix 75 daily for dual platelet therapy in light of recent stent. 2. Paroxysmal atrial fibrillation, status post cardioversion. Currently in sinus on Cordarone 200 mg daily, metoprolol 25 p.o. b.i.d. 3. Gastrointestinal bleeding, status post 2 units of packed red blood cells due to duodenal ulcer. Continue on intravenous Protonix q.12. Stable hematocrit. Esophagogastroduodenoscopy and colonoscopy findings discussed. The patient was also started on Icar-C Plus p.o. b.i.d. 4. Coronary artery disease. Continue on isosorbide mononitrate. 5. Chronic insomnia, on Restoril 15 daily. 6. Reactive depression. Zoloft 50 daily. 7. Hyperlipidemia. Crestor 25 daily. 8. We will repeat the CBC on a daily basis. The patient is getting out of the bed and encouraged for ambulation. Level of documentation 35 minutes. cc: MD Arun Esparza MD
[2018-12-30] MEDS: CRESTOR PO SCH (21:33)
[2018-12-30] MEDS: RESTORIL PO SCH (21:33)
[2018-12-30] MEDS: METAMUCIL POWDER PACKET PO SCH (21:33)
[2018-12-30] MEDS: REMERON PO SCH (21:34)
[2018-12-30] MEDS: ZOLOFT PO SCH (21:34)
[2018-12-31] MEDS: LOPRESSOR PO SCH ×2 (09:34→20:25)
[2018-12-31] MEDS: PLAVIX PO SCH (10:13)
[2018-12-31] MEDS: IMDUR PO SCH (10:13)
[2018-12-31] MEDS: ASPIRIN PO SCH (10:13)
[2018-12-31] MEDS: CENTRUM SILVER PO SCH (10:13)
[2018-12-31] MEDS: ICAR-C PO SCH ×2 (10:13→20:24)
[2018-12-31] MEDS: CORDARONE PO SCH (10:13)
[2018-12-31] MEDS: PROTONIX IV SCH ×2 (10:18→20:24)
--- NOTE | 2018-12-31 13:20 | PROGRESS NOTE ---
DATE: 12/31/2018 SUBJECTIVE: The patient is doing much better. No complaints. She did ambulate yesterday. OBJECTIVE: Vital Signs: Temp is 98 degrees, pulse 59, blood pressure 128/54. HEENT: Eyes are slightly congested. Neck: Supple. Chest: Clear. Heart: Heart sounds are regular. Abdomen: Belly is soft, nontender. ASSESSMENT AND PLAN: 1. History of gastrointestinal bleeding due to duodenal ulcer, stable. Will check the labs in the morning. 2. Paroxysmal atrial fibrillation. Currently in sinus on Cordarone and metoprolol. 3. Coronary artery disease, status post angioplasty and stent in the right coronary artery, on dual platelet therapy on aspirin and Plavix. Continue home medicines. Waiting for rehab placement. Will do the CBC and SMA-7 in the morning. Currently stable. LEVEL OF DOCUMENTATION: 25 minutes. cc: MD Arun Esparza MD
[2018-12-31] MEDS: ZOLOFT PO SCH (20:24)
[2018-12-31] MEDS: RESTORIL PO SCH (20:24)
[2018-12-31] MEDS: REMERON PO SCH (20:24)
[2018-12-31] MEDS: METAMUCIL POWDER PACKET PO SCH (20:24)
[2018-12-31] MEDS: CRESTOR PO SCH (20:24)
[2019-01-01 05:49] LABS: BASO# 0.02 X1000 (0.0-0.2); BASO% 0.3 % (0.0-0.8); EOS# 0.48 X1000 (0.0-0.7); EOS% 8.2 % (0.0-10.0); HEMOGLOBIN 9.4 g/dL (12.0-16.0); IMM GRAN# 0.02 X1000 (0.0-0.04); IMM GRAN% 0.3 % (0.0-0.5); LYMPH# 0.97 X1000 (1.2-3.4); LYMPH% 16.5 % (20.5-51.1); MCH 26.4 PG (27-31); MCHC 30.3 g/dL (33-37); MCV 87.1 FL (81-99); MONO# 0.77 X1000 (0.11-0.59); MONO% 13.1 % (1.7-9.3); MPV 11.2 FL (7.4-10.4); NEUT# 3.62 X1000 (1.4-6.5); NEUT% 61.6 % (42.2-75.2); PLT 171 X1000 (130-400); RBC 3.56 XMIL (4.2-5.4); RDW 14.2 % (11.5-14.5); WBC 5.88 X1000 (4.8-10.8)
[2019-01-01 06:19] LABS: CALCIUM 7.9 mg/dL (8.8-10.2); POTASSIUM 3.2 mmol/L (3.5-5.1)
[2019-01-01] MEDS ORDERED: POTASSIUM CHLORIDE 20 MEQ/SWI 20 MEQ/100 ML IVPB IV ONE (07:41)
[2019-01-01] MEDS: ICAR-C PO SCH (08:33)
[2019-01-01] MEDS: IMDUR PO SCH (08:33)
[2019-01-01] MEDS: CENTRUM SILVER PO SCH (08:33)
[2019-01-01] MEDS: ASPIRIN PO SCH (08:33)
[2019-01-01] MEDS: CORDARONE PO SCH (08:33)
[2019-01-01] MEDS: PROTONIX IV SCH (08:33)
[2019-01-01] MEDS: PLAVIX PO SCH (08:33)
[2019-01-01] MEDS: LOPRESSOR PO SCH (08:35)
--- NOTE | 2019-01-01 09:15 | DISCHARGE SUMMARY ---
ADMISSION DATE: 12/14/2018 DISCHARGE DATE: 01/01/2019 FINAL DIAGNOSES: 1. Chest pain, atypical. 2. Atrial fibrillation with rapid ventricular response. 3. Coronary artery disease. 4. Duodenal ulcer with bleeding. 5. Colon polyp. 6. Anemia secondary to gastrointestinal bleeding. 7. Depression. DISCHARGE MEDICATIONS: Remeron 15 mg at bedtime, psyllium at bedtime, Crestor 20 mg at bedtime, sertraline 50 mg bedtime, temazepam 15 mg at bedtime, Tylenol p.r.n., amiodarone 200 mg 1 daily, aspirin 81 mg daily, Plavix 75 mg daily, hydrocortisone 2.5% cream to perianal area b.i.d. p.r.n., iron and vitamin C 1 b.i.d., Imdur 30 mg 1 daily, metoprolol 25 mg b.i.d., multivitamins 1 daily, Protonix 40 mg 1 daily. CONSULTATIONS: Cardiology and GI, Dr. Paul Paulino. PROCEDURES: 1. Transesophageal cardioversion, 12/21. 2. EGD and colonoscopy, 12/27/2018. Colon polyp was removed, and biopsy done of gastric mucosa. H. pylori was negative. INITIAL LABORATORY: Hemoglobin 11.4, hematocrit 35.5, white blood count 9600. Sodium 128, potassium 4.3, BUN 57, creatinine 1.3, calcium 8.6. HOSPITAL COURSE: Cardiac enzymes and troponins were unremarkable. She developed atrial fibrillation with rapid ventricular response. She was given amiodarone IV and metoprolol p.o. There was a mild decrease in heart rate, but persistent atrial fibrillation. Transesophageal echocardiogram and cardioversion were done, being successful. She had sinus rhythm the remainder of the hospitalization. She continued to be on p.o. amiodarone and metoprolol. She was placed on Eliquis, Plavix, and aspirin. She had some GI bleeding with decrease in hematocrit to 26.5. She received 1 unit of blood. EGD revealed duodenal ulcer. Colonoscopy revealed a colon polyp, which was removed. She had some depression with feelings of never being able to go back home. She seemed to improve with Remeron and sertraline. Hematocrit this morning is 31. She has had no further bleeding. Eliquis was held, but she has continued on Plavix and aspirin. O2 saturation has remained good and is 95% this morning. She has been ambulatory some with physical therapy. She is discharged this morning to rehab. She has another 10 days remaining. Hopefully, she will continue to improve in strength and be able to return home at some point soon. cc: Arun Lugo MD
[2019-01-01 11:08] VITALS: BP 130/55
== END 2019-01-01 13:19 | DRG 280 ==
LOC: SUPCPDRO → ED 08:06 → 4N 11:28 → 3S 12-18 17:25
PROVIDERS: ADMIT Family Medicine; ATTEND Family Medicine
CPT/HCPCS: 36430; 36569; 51702; 71020; 71046; 74000; 74018; 74019; 74020; 80048; 80053; 81001; 82270; 82533; 82550; 82607; 83735; 83880; 84436; 84443; 84484; 85014; 85018; 85025; 85027; 85610; 85730; 86850; 86900; 86901; 86920; 87088; 88305; 88312; 92960; 93005; 93010; 93306; 93312; 97116; 97161; 97162; 97530; 99285; A9270; C9113; J0282; J0834; J1650; J1940; J2405; J2765; J3010; J3430; J3480; J7030; J7040; J7050; J7060; P9016; S0164

== ENCOUNTER 2019-02-24 15:51 | Inpatient (IN) ==
--- NOTE | 2019-02-24 16:21 | PROVIDER DOCUMENTATION ---
HPI-Musculoskeletal Pain/Inj - GENERAL Stated Complaint: KNEE PAIN Time Seen by Provider: 02/24/19 16:15 Source: patient - HX OF PRESENT ILLNESS-MUSKULOSKELTAL Nature of Presenting Problem: 83 YOF REPORTS SHE FELL THIS MORNING AFTER PICKING SOMETHING UP OFF FLOOR. SHE DENIES HEAD IMPACT, SYNCOPE, DIZZINESS OR OTHER SYMPTOMS. SHE IS C/O RIGHT HIP AND KNEE PAIN W/O DEFORMITY Severity in ED: mild Onset/Duration: 4-6 hours ago Timing: still present Modifying Factors: improves with: nothing Any recent injury?: Yes (FALL) Locality of Occurance: Home Similar Symptoms Previously?: No Recently seen or treated by another doctor?: No - FALL INJURY Location of Pain/Injury: reports: lower extremity Pain Radiation: reports: no radiation Reason for Fall: reports: unknown Loss of Consciousness: no loss of consciousness Injury Associated Symptoms: reports: denies symptoms - HIP/PELVIS PAIN/INJURY Hip Pain Location: reports: hip (R) Pain Radiation: reports: no radiation Context / Method of Injury: reports: unknown Associated Symptoms: reports: denies symptoms - LOWER EXTREMITY PAIN/INJURY Lower Extremities Pain: knee: right Review of Systems - Adult - REVIEW OF SYSTEMS - ADULT Constitutional: reports: no symptoms reported. denies: see HPI, chills, fever, fatique, night sweats, weight gain, weight loss, other Eyes: reports: no symptoms reported. denies: see HPI, discharge, dry eyes, decreased vision, blurred vision, double vision, eye pain, redness, other Ears, Nose, Mouth & Throat: reports: no symptoms reported. denies: see HPI, ear discharge, ear pain, hearing loss, tinnitus, epistaxis, sinus problem, nose pain, loose teeth, mouth/dental pain, mouth swelling, hoarseness, throat pain, throat swelling, other Cardiovascular: reports: no symptoms reported. denies: see HPI, chest pain, edema, heart murmur, irregular heart rate, orthopnea, palpitations, poor circulation, PND, syncope, other Respiratory: reports: no symptoms reported. denies: see HPI, chronic cough, cough, dyspnea on exertion, excessive sputum production, hemoptysis, pleurisy, shortness of breath, wheezing, other Gastrointestinal: reports: no symptoms reported. denies: see HPI, abdominal pain, hematemesis, constipation, diarrhea, difficulty swallowing, frequent heartburn, nausea, poor appetite, rectal bleeding, vomiting, other Genitourinary: reports: no symptoms reported. denies: see HPI, dysuria, discharge, frequency, flank pain, frequent UTI's, hematuria, hesitency, incontinence, urinary retention, urgency, other Musculoskeletal: reports: bone pain, joint pain. denies: no symptoms reported, see HPI, back pain, frequent leg cramps, joint swelling, muscle aches, muscle weakness, neck pain, other Integumentary: reports: no symptoms reported. denies: see HPI, hives, hair loss, itching, mole changes, nail changes, rash, skin sores/ulcer, skin thickening, other Neurological: reports: no symptoms reported. denies: see HPI, ataxia, dizziness/vertigo, headache/migraines, loss of balance, numbness, paresthesia, seizure, slurred speech, syncope, tremors, other Psychiatric: reports: no symptoms reported. denies: see HPI, anxiety, anti- depressant use, alcohol/drug dependence, depression, emotional problems, insomnia, panic attacks, suicidal thoughts, other Endocrine: reports: no symptoms reported. denies: see HPI, change in skin pigment, excessive sweating, goiter, cold intolerance, heat intolerance, increased hunger, increased thirst, polyuria, other Past History - Adult - PAST MEDICAL HISTORY-ADULT Review of Records: reports: Nursing Assessment Review, Social history reviewed & non-contributory. Major Childhood Illnesses: reports: denies history Cardiovascular: reports: cardiac disease, HTN, OR Respiratory: reports: denies history Gastrointestinal: reports: cholelithiasis Obstetrical/Gynecological: reports: denies history Genitourinary: reports: denies history Musculoskeletal: reports: denies history Neurological: reports: denies history Endocrine/Immune: reports: denies history Other Conditions: reports: denies history - PRIOR SURGERIES/PROCEDURES Surgical/Procedure History: reports: cholecystectomy, hysterectomy - IMMUNIZATION STATUS Childhood Immunizations: See Nurse Assessment Flu Vaccine: See Nurse Assessment - FAMILY HISTORY Family History: reviewed, not pertinent Physical Exam-Injury Related - Physical Exam-Injury Related Initial Vital Signs Reviewed: Yes General Appearance: appears well, alert Eyes: PERRL/EOMI, pink conjunctivae Head, Ears, Nose, Mouth & Throat: normocephalic/atraumatic, moist mucous membranes, normal ENT inspection Neck: non-tender, full range of motion Respiratory: chest non-tender, lungs clear, normal breath sounds, no respiratory distress Cardiovascular: normal peripheral pulses, regular rate, rhythm Chest/Breast: deferred Abdominal Exam: normal bowel sounds, non tender Female Genitalia/Pelvic Exam: deferred Male Genitalia: deferred Rectal Exam: deferred Lymphatic: no adenopathy Extremity: normal range of motion, non-tender Integumentary: normal color, warm/dry Neurologic: grossly normal Psych/Mental Status: normal mood/affect, oriented x 3 Progress - PLAN OF CARE/RESULTS Progress/Plan/Lab Results: Vital Signs - 8 hr 02/24/19 16:15 Temperature 98.5 F Pulse Rate 77 Respiratory Rate 12 Blood Pressure 150/64 O2 Sat by Pulse Oximetry 90 L Orders Category Date Time Status KNEE 3 VIEWS RIGHT [RAD] Stat Exams 02/24/19 16:15 Completed XRAY HIP W/PELVIS BILAT 3-4VWS [RAD] Stat Exams 02/24/19 16:15 Completed - XRAY 1 XRAY: Right XRAY Study: Knee Impression: Abnormal XRAY Interpretation: MILD ARTHRITIC CHANGES NO FRACTURES 2 XRAY: Bilateral XRAY Study: Pelvis, Hip XRAY Interpretation: MILD ARTHRITIS WITHOUT ACUTE PROCESS Departure - Departure Date of Disposition Decision: 02/24/19 Time of Disposition Decision: 17:36 DIAGNOSIS: Fall Qualifiers: Encounter type: initial encounter Qualified Code(s): W19.XXXA - Unspecified fall, initial encounter Disposition: HOME 01 Certified Medical Emergency: Emergent Condition: Good Additional Freetext Instructions: ED Follow Up Instructions: You have been treated by a care provider in the Emergency Department. These instructions are being provided to you so you can have an understanding of how to care for yourself upon discharge. Upon discharge from the Emergency Department, you are responsible for making arrangements for follow-up care by a physician of your choice. Take all prescribed medications as directed. Return to the Emergency Department immediately for any new or worsening symptoms. You may call the Physician Referral phone number at [phone] to obtain a list of Physicians who are taking new patients. Prescriptions: Acetaminophen [Tylenol] 500 mg PO Q4H PRN PRN #30 tab PRN Reason: Pain Referrals and Follow-Ups: Arun Lugo MD [Primary Care Provider] - Discharge Education: Fall Prevention in the Home, Adult, [id number], RICE Therapy for Routine Care of Injuries, [id number] - Critical Care Note This patient required my direct & personal management of CC.: No Attestation - Physician/ HERBERT Attestation Patient care was provided by Advanced Practice Provider:: Yes Advanced Practice Provider:: Loreto Ulrich Advanced Practice Provider documentation review:: The Mid-level provider documentation, treatment plan and medical decision making was reviewed by the physician who agrees with all treatment and medical decision making by the MLP. The physician spent face to face time with patient:: No Advanced Practice Provider documentation review:: Supervising physician onsite and consulted in the evaluation and care of this patient. The physician did not have a face to face encounter with the patient.
--- NOTE | 2019-02-24 16:52 | ED EKG INTERP ---
This chart was entered by Gretchen Reddy Scribe, acting as scribe for Gm Arriola MD. EKG Interpretation - EKG Time of EKG reading by physician:: 16:17 EKG Read and Signed by:: Gm Arriola EKG Interpretation (*Must complete 3 of following elements*): Abnormal Rate: 72 Rhythm: NSR [place]: normal QRS: other (low voltage QRS; inferior infarct; possible anterolateral infarct) AL Interval: normal ST Wave: normal Attestation - Physician/ HERBERT Attestation Patient care was provided by Advanced Practice Provider:: Yes Advanced Practice Provider:: Loreto Ulrich Advanced Practice Provider documentation review:: The Mid-level provider documentation, treatment plan and medical decision making was reviewed by the physician who agrees with all treatment and medical decision making by the MLP. The physician spent face to face time with patient:: No Advanced Practice Provider documentation review:: Supervising physician onsite and consulted in the evaluation and care of this patient. The physician did not have a face to face encounter with the patient. This chart was documented by the indicated scribe, (Gretchen Reddy Scribe) and accurately reflects the services I performed and decisions made by me, Gm Arriola MD, as attested by the provider's signature.
--- NOTE | 2019-02-24 17:27 | Diag Imaging Result Doc PS360 ---
EXAM: KNEE 3 VIEWS RIGHT HISTORY: FALL TECHNIQUE: Right knee, three views COMPARISON: None. FINDINGS: No fracture. No dislocation. Mild to moderate arthritis. IMPRESSION: No acute bony injury. Electronically signed by Gee Welch 02/24/2019 5:25 PM
--- NOTE | 2019-02-24 17:31 | Diag Imaging Result Doc PS360 ---
EXAM: XRAY HIP W/PELVIS BILAT 3-4VWS HISTORY: FALL TECHNIQUE: Pelvis and bilateral hips, four views COMPARISON: None. FINDINGS: No fracture. No dislocation. Mild bilateral arthritis. Prominent atherosclerosis. IMPRESSION: No acute bony injury. Electronically signed by Gee Welch 02/24/2019 5:28 PM
[2019-02-24] MEDS ORDERED: MORPHINE IM PRN (18:40)
--- NOTE | 2019-02-24 18:50 | Diag Imaging Result Doc PS360 ---
EXAM: FEMUR MIN 2 VIEWS RIGHT HISTORY: FALL TECHNIQUE: Right femur, two views COMPARISON: Pelvis and hip views FINDINGS: The femur views are more suspicious for a subcapital femoral neck fracture with mild compaction. The femoral head remains in the acetabulum. No other fracture. IMPRESSION: Femoral films are suspicious for a femoral neck fracture not appreciated on the pelvis and hip views. A CT is suggested for confirmation. Electronically signed by Gee Welch 02/24/2019 6:48 PM
--- NOTE | 2019-02-24 19:46 | Diag Imaging Result Doc PS360 ---
EXAM: CT PELVIS W/O CONTRAST HISTORY: ? FEMORAL HEAD FRACTURE TECHNIQUE: CT pelvis without contrast COMPARISON: None. FINDINGS: There is a subcapital right femoral neck fracture. The femoral head remains in the acetabulum. There is mild compaction into the femoral neck. No other fracture. IMPRESSION: Subcapital right femoral neck fracture. This exam was performed using automated exposure control, adjustment of mA or kV according to patient size, and/or use of iterative reconstruction technique. Electronically signed by Gee eWlch 02/24/2019 7:44 PM
[2019-02-24] MEDS ORDERED: MORPHINE IV PRN (20:59)
--- NOTE | 2019-02-24 21:42 | HISTORY AND PHYSICAL ---
PRIMARY CARE PHYSICIAN: Dr. Arun Lugo. CHIEF COMPLAINT: Fall. HISTORY OF PRESENTING ILLNESS: An 83-year-old female with a history of coronary disease, hypertension, paroxysmal atrial fibrillation, and hyperlipidemia, who apparently had a fall earlier today. The patient states that she was about to take her medicines, and 1 of her pills fell down. She went to pick it up. She somehow lost her balance and landed on her right side. She developed a moderate amount of pain in the right hip. She was brought to the emergency department. She had imaging done which did show a right femoral neck fracture. Due to her presenting symptoms, she will require admission for further management. Her case was discussed with Orthopaedics, who stated to keep the patient n.p.o. after midnight. At the time of my examination, the patient denied any headache, fever, chills, chest pain, shortness of breath, hemoptysis or any weight changes, but complained of right hip pain. PAST MEDICAL HISTORY: Includes coronary artery disease, hypertension, paroxysmal atrial fibrillation, hyperlipidemia. PAST SURGICAL HISTORY: Coronary stent, cholecystectomy, hysterectomy, left carotid endarterectomy. ALLERGIES: Penicillin. CURRENT MEDICATIONS: Include amiodarone 200 mg p.o. daily, aspirin 81 mg p.o. daily, Plavix 75 mg p.o. daily, lisinopril 2.5 mg p.o. daily, metoprolol 25 mg p.o. b.i.d., Remeron 15 mg p.o. at bedtime, Crestor 20 mg p.o. at bedtime, Zoloft 50 mg p.o. at bedtime, Restoril 15 mg p.o. at bedtime. SOCIAL HISTORY: She denies any history of smoking, alcohol or illicit drug use. She lives alone, and she uses a cane to ambulate. FAMILY HISTORY: Positive for coronary disease in mother. REVIEW OF SYSTEMS: Fourteen-point review of systems is as per the HPI. Other systems negative. PHYSICAL EXAMINATION: GENERAL: Cooperative, friendly elderly female. She is resting more comfortably now. VITAL SIGNS: Temperature 98.5 degrees, pulse 77, respirations 12, blood pressure 150/64. HEENT: Extraocular movements intact. PERRLA. NECK: No masses. CHEST: Clear to auscultation. CARDIOVASCULAR: Regular rate and rhythm. ABDOMEN: Soft. Positive bowel sounds. EXTREMITIES: Right hip tenderness. NEUROLOGIC: She is awake, alert, oriented x3. : No bladder distention. SKIN: Warm. LABORATORIES AND STUDIES: Still pending x-ray report. Femur x-ray shows a right femoral neck fracture. ASSESSMENT: An 83-year-old elderly female with a history of coronary disease, hypertension, paroxysmal atrial fibrillation, and hyperlipidemia, who apparently had a fall earlier today. She was evaluated in the emergency department. She had imaging done which did show a right femoral neck fracture. The case was discussed with Orthopaedics, who recommended admission for further management. 1. Right hip fracture. 2. Coronary artery disease. 3. Hypertension. 4. Paroxysmal atrial fibrillation. PLAN: 1. We will admit patient to the medical floor with telemetry. 2. Keep patient n.p.o. Continue with gentle hydration and pain control. 3. Orthopaedics was consulted. 4. Monitor her blood pressure closely. 5. Restart home medications after surgery. 6. We will put patient on DVT prophylaxis with SCDs. 7. We will continue to follow and reassess and will make further recommendation based on patient's clinical course. cc: MD Arun Guzman MD
[2019-02-25 05:39] LABS: URINE SOURCE CLEAN CATCH
[2019-02-25 05:41] LABS: BILIRUBIN URINE NEGATIVE (NEGATIVE); BLOOD URINE MODERATE (NEGATIVE); COLOR YELLOW; GLUCOSE URINE NEGATIVE (NEGATIVE); KETONE URINE 10 mg/dL (NEGATIVE); LEUKOCYTES URINE NEGATIVE (NEGATIVE); NITRITE URINE NEGATIVE (NEGATIVE); PROTEIN URINE TRACE mg/dL (NEGATIVE); SP GRAVITY URINE 1.012; TURBIDITY URINE CLEAR (CLEAR); UROBILINOGEN URINE NORMAL (NORMAL)
[2019-02-25 05:42] LABS: UR EPITHELIAL CELLS <10 /HPF (<10); URINE BACTERIA NEGATIVE /HPF; URINE RBC <10 /HPF (<10); URINE WBC <10 /HPF (<10)
[2019-02-25 06:32] LABS: HEMATOCRIT 34.4 % (37.0-47.0); HEMOGLOBIN 10.9 g/dL (12.0-16.0); MCH 27.4 PG (27-31); MCHC 31.7 g/dL (33-37); MCV 86.4 FL (81-99); RBC 3.98 XMIL (4.2-5.4); RDW 15.9 % (11.5-14.5); WBC 6.74 X1000 (4.8-10.8)
[2019-02-25 06:57] LABS: CALCIUM 8.8 mg/dL (8.8-10.2); CREATININE 1.3 mg/dL (0.5-0.9); POTASSIUM 4.6 mmol/L (3.5-5.1)
[2019-02-25] MEDS ORDERED: ROBINUL ONE (08:59)
[2019-02-25] MEDS ORDERED: XYLOCAINE-MPF 2% ONE (08:59)
[2019-02-25] MEDS ORDERED: DIPRIVAN 1% ONE (09:18)
[2019-02-25] MEDS ORDERED: FENTANYL ONE (09:19)
[2019-02-25] MEDS ORDERED: NEO-SYNEPHRINE ONE (09:20)
[2019-02-25] MEDS ORDERED: SODIUM CHLORIDE 0.9% 10 ML ONE ×2 (09:20→09:32)
--- NOTE | 2019-02-25 09:25 | ORTHOPAEDICS CONSULTATION ---
DATE: 02/25/2019 CHIEF COMPLAINT: Right hip pain. HISTORY OF PRESENT ILLNESS: This is an 83-year-old female with a history of coronary artery disease and medical illnesses, status post a fall at home. She presented complaining of right hip pain. She was evaluated with x-rays and CT scan, and found to have a minimally displaced subcapital femoral neck fracture. She is admitted by the hospitalist staff. I was consulted for surgical management. She complains of pain and tenderness over the right hip. She denies any other injury, other than chronic back pain. PAST MEDICAL HISTORY: Significant for coronary artery disease, hypertension, atrial fibrillation, and hyperlipidemia. She has had stents and cholecystectomies in the past, as well as a hysterectomy and carotid endarterectomy. ALLERGIES: Reported to penicillin. MEDICATIONS: Her current medications are as listed on her intake form including amiodarone, aspirin, Plavix, lisinopril, metoprolol, Remeron, Crestor, Zoloft, Restoril. SOCIAL HISTORY: She resides in her own house. Does not smoke or drink. She lives alone. Uses a cane for mobility. PHYSICAL EXAMINATION: Reveals both upper extremities and left lower extremity to be nontender with normal range of motion. There is some edema over the lower extremities, which appears to be chronic. There is pain or tenderness about the right leg with passive motion with pain referred in the right groin. DIAGNOSTIC DATA: X-rays are reviewed including x-rays and a CT scan which showed a minimally displaced subcapital right femoral neck fracture. ASSESSMENT: Minimally displaced subcapital right femoral neck fracture. PLAN: I have discussed treatment with the patient to include percutaneous pinning of the hip. We have discussed risks predominantly including the risks that if it fails to unite, it may require conversion to a hip replacement later. She understands additional surgical risks such as bleeding, damage to tendon, nerve, or blood vessel, loss of limb or life, anesthesia related complications, and other imponderables. She is willing to proceed. We will plan on proceeding with that today. cc: MD Arun Luke MD
[2019-02-25] MEDS: KEFZOL 1 GM/D5W 1 GM/50 ML IVPB IV ONE ×2 (09:42→10:00)
[2019-02-25] MEDS ORDERED: ZOFRAN ONE (10:09)
[2019-02-25 10:54] LABS: URINE SOURCE CATH
[2019-02-25 10:57] LABS: BILIRUBIN URINE NEGATIVE (NEGATIVE); BLOOD URINE NEGATIVE (NEGATIVE); COLOR YELLOW; GLUCOSE URINE NEGATIVE (NEGATIVE); KETONE URINE 20 mg/dL (NEGATIVE); LEUKOCYTES URINE NEGATIVE (NEGATIVE); NITRITE URINE NEGATIVE (NEGATIVE); PROTEIN URINE NEGATIVE (NEGATIVE); SP GRAVITY URINE 1.008; TURBIDITY URINE CLEAR (CLEAR); UR EPITHELIAL CELLS <10 /HPF (<10); URINE BACTERIA NEGATIVE /HPF; URINE RBC <10 /HPF (<10); URINE WBC <10 /HPF (<10); UROBILINOGEN URINE NORMAL (NORMAL)
[2019-02-25] MEDS ORDERED: MILK OF MAGNESIA PO PRN (12:07)
[2019-02-25] MEDS ORDERED: MORPHINE IV PRN (12:07)
[2019-02-25] MEDS ORDERED: ZOFRAN IV PRN (12:07)
[2019-02-25] MEDS ORDERED: HALDOL IV PRN (12:15)
[2019-02-25] MEDS: IMDUR PO SCH (12:47)
--- NOTE | 2019-02-25 12:47 | PROGRESS NOTE ---
DATE: 02/25/2019 She was admitted last night with a history of fall. She had a right hip fracture. She has gone for surgery this morning. She has a known case of coronary artery disease, hypertension, paroxysmal atrial fibrillation. Her vital signs have been stable. Hemoglobin was 10.9, hematocrit 34.4, white count 6.74. Electrolytes are normal. Her BUN is 22, creatinine 1.3. Overall condition appears to be stable. cc: MD Arun Hairston MD
[2019-02-25] MEDS: OXY IR PO PRN ×2 (12:53→17:54)
[2019-02-25] MEDS: NS 1,000 ML IV SCH (12:56)
[2019-02-25] MEDS ORDERED: CALMOSEPTINE OINTMENT TOP PRN (14:17)
--- NOTE | 2019-02-25 14:54 | OPERATIVE NOTE ---
PROCEDURE DATE: 02/25/2019 PREOPERATIVE DIAGNOSIS: Nondisplaced right femoral neck fracture. POSTOPERATIVE DIAGNOSIS: Nondisplaced right femoral neck fracture. PROCEDURE: Closed reduction and percutaneous pinning, right hip. SURGEON: Marcelo Saxena MD ANESTHESIA: General. COMPLICATION: None. PROCEDURE IN DETAIL: An 83-year-old female presents for surgical stabilization of a right femoral neck fracture. Risks, benefits, and no guarantees were discussed, and she is willing to proceed. She was taken to the operating room and satisfactory anesthesia was obtained. She was transferred to the hip fracture table and the right hip prepped and draped in the usual sterile fashion. A time-out was taken to confirm operative site, procedure, and patient. Afterwards, the fluoroscope was used to verify accurate alignment and reduction of the right hip. Under fluoroscopic guidance, a small incision was made roughly opposite of the lesser trochanter and dissection carried down to the lateral aspect of the proximal femur. Under fluoroscopic guidance, three 7.3 cannulated screw guide pins were placed in a triangular fashion across the lateral cortex, up the femoral neck, and into the central aspect of the femoral head. Care was taken to avoid any articular penetration. These were measured and one 80 and two 75 length screws placed in a triangular fashion. All screws had good purchase. The guidewires were removed and the C-arm used to verify accurate fracture reduction and hardware placement. The wound was irrigated and closed in layers with 2-0 Vicryl followed by skin tammy. Sterile dressings were placed and she was recovered from anesthesia and transferred to the recovery room in stable condition. No intraoperative complications were noted. Instrument count and sponge count were correct at the time of closure. cc: MD Arun Luke MD
[2019-02-25] MEDS: KEFZOL 1 GM/D5W 1 GM/50 ML IVPB IV SCH (17:53)
[2019-02-25] MEDS: TYLENOL PO SCH ×2 (17:54→23:59)
[2019-02-25] MEDS: COLACE PO SCH (23:58)
[2019-02-26] MEDS: NS 1,000 ML IV SCH ×2 (02:06→18:43)
[2019-02-26] MEDS: KEFZOL 1 GM/D5W 1 GM/50 ML IVPB IV SCH (02:06)
[2019-02-26] MEDS: TYLENOL PO SCH ×3 (05:34→21:57)
[2019-02-26] MEDS: XARELTO PO SCH (05:36)
[2019-02-26 06:40] LABS: CALCIUM 8.1 mg/dL (8.8-10.2); CREATININE 1.2 mg/dL (0.5-0.9); POTASSIUM 4.1 mmol/L (3.5-5.1)
[2019-02-26 07:22] LABS: HEMATOCRIT 29.1 % (37.0-47.0); HEMOGLOBIN 8.9 g/dL (12.0-16.0)
--- NOTE | 2019-02-26 08:02 | PROGRESS NOTE ---
DATE: 02/26/2019 VITAL SIGNS: Temperature 97.6 degrees, heart rate 64, respirations 16, blood pressure 126/45. O2 saturation on nasal oxygen 98%. LABORATORY: Hemoglobin 8.9, hematocrit 29.1. Sodium 140, potassium 4.1, BUN 22, creatinine 1.2, calcium 8.1, pre-albumin 13.2. SUBJECTIVE: The patient is an 83-year-old white female who fell at home and had a fracture of her right hip. She is weak and slow, about mobilizing and getting up. OBJECTIVE: Chest is clear. Heart is regular in rate and rhythm. PLAN: Rehab at discharge. cc: Arun Lugo MD
--- NOTE | 2019-02-26 09:06 | ORTHOPAEDICS PROGRESS NOTE ---
DATE: 02/26/2019 Ms. Sanchez is seen status post pinning of her hip. Her hematocrit is 29. Her vital signs are stable. She does have a small hematoma over the surgical site which is likely due to being on Plavix and aspirin. This will just be treated with observation. She can be mobilized touchdown weightbearing at this time. She can be transferred home or to rehab center when she is stable. She will likely need rehab placement. Yisel can be removed in 10 days. cc: MD Arun Luke MD
[2019-02-26] MEDS: IMDUR PO SCH (09:19)
[2019-02-26] MEDS: FERROUS SULFATE PO SCH (09:19)
--- NOTE | 2019-02-26 10:52 | EKG Report ---
Test Performed on : 02/24/2019 4:17:01 PM Test Reason : Done in ED, No order in [place] Blood Pressure : / mmHG Vent. Rate : 072 BPM Atrial Rate : 072 BPM P-R Int : 120 ms QRS Dur : 072 ms QT Int : 330 ms P-R-T Axes : 064 -10 -13 degrees QTc Int : 361 ms Normal sinus rhythm. Low voltage QRS Inferior infarct (cited on or before 14-AUG-2018) Possible Anterolateral infarct (cited on or before 14-AUG-2018) Abnormal ECG When compared with ECG of 24-DEC-2018 12:55, Questionable change in initial forces of Lateral leads T wave inversion less evident in Inferior leads Nonspecific T wave abnormality, worse in Anterior leads QT has shortened Confirmed by Sheng JACKSON, iRgoberto Zelaya ([id number]) on 02/28/2019 8:19:23 AM
--- NOTE | 2019-02-26 14:43 | Diag Imaging Result Doc PS360 ---
CHEST-PORTABLE - 02/26/2019 INDICATION: REHAB PLACEMENT COMPARISON: 12/15/2018 FINDINGS: There is mild pulmonary vascular congestion. There is a trace left pleural effusion. There is also some left basilar atelectasis. Heart size remains top normal. IMPRESSION: Pulmonary vascular congestion. Left basilar atelectasis and trace left pleural effusion. Electronically signed by Deon Amezcua 02/26/2019 2:41 PM
[2019-02-26] MEDS: LASIX IV SCH (18:43)
[2019-02-26] MEDS: COLACE PO SCH (21:56)
[2019-02-27] MEDS: XARELTO PO SCH (05:38)
[2019-02-27] MEDS: TYLENOL PO SCH ×4 (05:38→22:44)
[2019-02-27] MEDS: NS 1,000 ML IV SCH (05:47)
[2019-02-27 06:00] LABS: HEMATOCRIT 26.5 % (37.0-47.0); HEMOGLOBIN 8.1 g/dL (12.0-16.0)
--- NOTE | 2019-02-27 08:02 | PROGRESS NOTE ---
DATE: 02/27/2019 VITAL SIGNS: Stable with temperature 98.9 degrees, heart rate 58, respiration 18, blood pressure 105/40, O2 saturation on room air 100%. LABORATORY: Hematocrit 26.5. OBJECTIVE: General: Patient rested poorly last night. She had moderate hip pain relieved by oxycodone. Chest: Clear. Abdomen: Soft. PLAN: Transfuse 1 unit of blood, discontinue Ewing catheter, and try to get her up in a chair twice today. cc: Arun Lugo MD
[2019-02-27] MEDS ORDERED: NS 500 ML IV ONE (09:00)
[2019-02-27] MEDS: IMDUR PO SCH (11:55)
[2019-02-27] MEDS: FERROUS SULFATE PO SCH (11:55)
[2019-02-27] MEDS: PERIDEX MT SCH ×2 (11:55→22:45)
--- NOTE | 2019-02-27 14:22 | ORTHOPAEDICS PROGRESS NOTE ---
DATE: 02/27/2019 Ms. Sanchez is seen status post pinning of her hip. Presently, she is afebrile with stable vital signs. She did have a low hematocrit and is receiving transfusion for that. She can be mobilized touchdown weightbearing. She can be transferred home or to the rehab center when stable. At this point, we will be available as needed. She will need to follow up with me in roughly 10 to 12 days for suture removal and repeat x-rays. cc: MD rAun Luke MD
[2019-02-27] MEDS: LASIX IV SCH (16:22)
[2019-02-27] MEDS: COLACE PO SCH (22:44)
[2019-02-28] MEDS: NS 1,000 ML IV SCH ×2 (05:55→16:35)
[2019-02-28 06:09] LABS: HEMATOCRIT 30.8 % (37.0-47.0); HEMOGLOBIN 9.8 g/dL (12.0-16.0)
--- NOTE | 2019-02-28 08:24 | PROGRESS NOTE ---
DATE: 02/28/2019 SUBJECTIVE: Vital signs stable with temperature 98.5 degrees, heart rate 75, respiration 18, blood pressure 108/43, O2 saturation on room air 92%. Hematocrit is 30.8 after transfusion of 1 unit packed red blood cells yesterday. The patient complained of right knee pain last evening. X- ray had been done on admission of the right knee revealing no fracture, but some arthritis. She complains with insomnia and states that her home medication for sleep has not been given. Chest is clear. Abdomen is soft. PLAN: Continue physical therapy, add sleep medicine. cc: Arun Lugo MD
[2019-02-28] MEDS: FERROUS SULFATE PO SCH (09:48)
[2019-02-28] MEDS: LASIX IV SCH (09:48)
[2019-02-28] MEDS: PERIDEX MT SCH ×2 (09:48→21:28)
[2019-02-28] MEDS: IMDUR PO SCH (09:48)
[2019-02-28] MEDS: TYLENOL PO SCH ×3 (09:50→21:28)
[2019-02-28] MEDS: XARELTO PO SCH (09:50)
[2019-02-28] MEDS: RESTORIL PO SCH (21:27)
[2019-02-28] MEDS: REMERON PO SCH (21:28)
[2019-02-28] MEDS: COLACE PO SCH (21:28)
[2019-03-01] MEDS: TYLENOL PO SCH ×3 (06:21→22:20)
[2019-03-01] MEDS: NS 1,000 ML IV SCH ×2 (06:21→12:25)
--- NOTE | 2019-03-01 08:13 | PROGRESS NOTE ---
DATE: 03/01/2019 OBJECTIVE: Vital signs: Temperature 97.7 degrees, heart rate 68, respirations 16, blood pressure 150/72, O2 saturation on room air 100%. General: Patient is somnolent, but arousable. Chest: Chest is clear. Abdomen: Abdomen is soft. Extremities: There is no ankle edema. PLAN: Continue physical therapy, rehab bed when available. cc: Arun Lugo MD
[2019-03-01] MEDS: FERROUS SULFATE PO SCH (09:16)
[2019-03-01] MEDS: LASIX IV SCH (09:16)
[2019-03-01] MEDS: PERIDEX MT SCH ×2 (09:16→22:20)
[2019-03-01] MEDS: IMDUR PO SCH (09:16)
[2019-03-01] MEDS: XARELTO PO SCH (09:17)
[2019-03-01] MEDS: RESTORIL PO SCH (22:18)
[2019-03-01] MEDS: REMERON PO SCH (22:19)
[2019-03-01] MEDS: COLACE PO SCH (22:19)
[2019-03-02] MEDS: NS 1,000 ML IV SCH ×2 (04:30→11:49)
[2019-03-02] MEDS: XARELTO PO SCH (06:09)
[2019-03-02] MEDS: TYLENOL PO SCH ×3 (06:09→21:42)
[2019-03-02] MEDS: PERIDEX MT SCH ×2 (08:11→21:41)
[2019-03-02] MEDS: FERROUS SULFATE PO SCH (08:11)
[2019-03-02] MEDS: LASIX IV SCH (08:11)
[2019-03-02] MEDS: IMDUR PO SCH (08:11)
--- NOTE | 2019-03-02 08:39 | PROGRESS NOTE ---
DATE: 03/02/2019 SUBJECTIVE: Vital signs stable with temperature 97.7 degrees, heart rate 72, respirations 18, blood pressure 110/56, O2 saturation on room air 95%. The patient is resting better with mirtazapine. Chest is clear to auscultation. There is no ankle edema or calf tenderness. PLAN: Rehab when a bed is available. Continue physical therapy. cc: Aurn Lugo MD
[2019-03-02] MEDS: COLACE PO SCH (21:42)
[2019-03-02] MEDS: REMERON PO SCH (21:42)
[2019-03-02] MEDS: RESTORIL PO SCH (21:45)
[2019-03-03] MEDS: NS 1,000 ML IV SCH ×2 (03:00→17:23)
[2019-03-03] MEDS: XARELTO PO SCH (05:06)
[2019-03-03] MEDS: TYLENOL PO SCH ×2 (05:06→17:23)
--- NOTE | 2019-03-03 09:29 | PROGRESS NOTE ---
DATE: 03/03/2019 SUBJECTIVE: An 83-year-old white female patient admitted with fall and right hip fracture, status post surgery. The patient is doing better. She denied any pain. The patient is not able to give good history. The patient underwent surgery, and she did well. No chest pain, palpitation. No unusual cough or expectoration. Denied any nausea or vomiting. Oral intake is variable. Denied any diarrhea, blood or mucus in the stool. Admission history, physical and Orthopedic consult noted. PAST MEDICAL HISTORY: Significant for hypertension, paroxysmal atrial fibrillation, coronary artery disease, hyperlipidemia. The patient had a stent in coronary arteries, cholecystectomy, hysterectomy, left carotid endarterectomy, recent surgery on her right hip. PHYSICAL EXAMINATION: Vital signs: Blood pressure 108/47, pulse 76, respirations 16, temperature 98.2 degrees. Skin: Senile turgor. Neck: Supple. No JVD. Lungs: Bilateral good air entry present. CVS: S1 and S2 heard. Abdomen: Soft, globular. Bowel sounds present. Extremities: No cyanosis, clubbing. No acute DVT. CAFETERIA MONITOR: Patient is sleeping but arousable. Able to move all 4 limbs. Uncooperative for detailed neurologic examination. LAB DATA: Last hemoglobin was 9.8, hematocrit 30.8. Electrolytes checked on February 26 noted. CONSIDERATION: 1. Right hip fracture status post surgery. The patient is waiting for rehab placement. 2. Atrial fibrillation. 3. Hypertension. 4. Hyperlipidemia. 5. Coronary artery disease chest-pain free. PLAN: Labs and medication noted. I will continue current treatment. I am going to check appropriate labs and close observation. We will check electrolytes as patient is still on IV Lasix. cc: MD Arun Martinez MD
[2019-03-03] MEDS: LASIX IV SCH (09:56)
[2019-03-03] MEDS: IMDUR PO SCH (09:56)
[2019-03-03] MEDS: FERROUS SULFATE PO SCH (09:56)
[2019-03-03] MEDS: PERIDEX MT SCH ×2 (09:56→21:19)
[2019-03-03] MEDS: COLACE PO SCH (21:19)
[2019-03-03] MEDS: RESTORIL PO SCH (21:20)
[2019-03-03] MEDS: REMERON PO SCH (21:20)
[2019-03-04] MEDS: TYLENOL PO SCH ×4 (00:28→22:00)
[2019-03-04] MEDS: NS 1,000 ML IV SCH (00:30)
[2019-03-04] MEDS: XARELTO PO SCH (05:11)
[2019-03-04 06:27] LABS: BASO# 0.03 X1000 (0.0-0.2); BASO% 0.6 % (0.0-0.8); EOS# 0.45 X1000 (0.0-0.7); EOS% 9.2 % (0.0-10.0); HEMATOCRIT 39.6 % (37.0-47.0); HEMOGLOBIN 12.6 g/dL (12.0-16.0); IMM GRAN# 0.02 X1000 (0.0-0.04); IMM GRAN% 0.4 % (0.0-0.5); LYMPH% 28.7 % (20.5-51.1); MCH 27.5 PG (27-31); MCHC 31.8 g/dL (33-37); MCV 86.3 FL (81-99); MONO# 0.81 X1000 (0.11-0.59); MONO% 16.6 % (1.7-9.3); NEUT# 2.17 X1000 (1.4-6.5); NEUT% 44.5 % (42.2-75.2); PLT 226 X1000 (130-400); RBC 4.59 XMIL (4.2-5.4); RDW 15.4 % (11.5-14.5); WBC 4.88 X1000 (4.8-10.8)
[2019-03-04 06:46] LABS: ALB/GLOB RATIO 0.8; ALBUMIN 2.8 g/dL (3.5-5.0); CALCIUM 8.7 mg/dL (8.8-10.2); MAGNESIUM 1.6 mg/dL (1.5-2.7); POTASSIUM 3.3 mmol/L (3.5-5.1); TOTAL BILIRUBIN 0.63 mg/dL (0.20-1.00); TOTAL PROTEIN 6.2 g/dL (6.3-8.3)
[2019-03-04] MEDS ORDERED: KLOR-CON PO ONE (09:43)
--- NOTE | 2019-03-04 10:15 | PROGRESS NOTE ---
DATE: 03/04/2019 SUBJECTIVE: Ms. Erica Sanchez is doing fair. No fever or chills. The patient is not participating in physical therapy because of pain. No nausea, vomiting. Oral intake is fair. No typical chest pain or palpitation. OBJECTIVE: Vital Signs: Noted. Neck: Supple. No JVD. Lungs: Bibasilar crepitations. Heart: S1 and S2 heard. Abdomen: Soft, globular. Bowel sounds present. Extremities: No cyanosis, clubbing. No acute DVT. ASSEMBLER SEAT: Alert, awake, able to move all 4 limbs. LABORATORY DATA DONE TODAY: Hemoglobin 12.6, hematocrit 39.6, platelet count 226,000, WBC count 4.88. Electrolytes did reveal hypokalemia. BUN 15, creatinine was 1. MEDICAL PROBLEMS: 1. Right hip fracture, status post surgery. 2. Hypokalemia. 3. Hypertension. 4. Hyperlipidemia. 5. Atrial fibrillation. PLAN: I am going to supplement potassium. Continue rest of the treatment. Close observation. The patient is getting physical therapy. Overall plan discussed with the patient and she is in agreement. cc: MD Arun Martinez MD
[2019-03-04] MEDS: IMDUR PO SCH (11:07)
[2019-03-04] MEDS: FERROUS SULFATE PO SCH (11:07)
[2019-03-04] MEDS: LASIX IV SCH (11:08)
[2019-03-04] MEDS: PERIDEX MT SCH ×2 (11:08→22:36)
[2019-03-04] MEDS: REMERON PO SCH (22:35)
[2019-03-04] MEDS: COLACE PO SCH (22:36)
[2019-03-04] MEDS: RESTORIL PO SCH (22:36)
[2019-03-05] MEDS: TYLENOL PO SCH ×2 (06:06→14:24)
[2019-03-05] MEDS: XARELTO PO SCH (06:07)
[2019-03-05 08:01] VITALS: BP 130/64
--- NOTE | 2019-03-05 08:05 | PROGRESS NOTE ---
DATE: 03/05/2019 VITAL SIGNS: Temperature 98.2 degrees, heart rate 78, respirations 16, blood pressure 123/59, and O2 saturation on room air 95%. LABORATORY: Hemoglobin yesterday was 12.6, hematocrit 39.6, sodium 138, potassium 3.3, BUN 15, and creatinine 1.0. Magnesium and potassium were given yesterday. PHYSICAL EXAMINATION: Chest is clear. Abdomen is soft. There is no ankle edema. PLAN: To rehab when a bed is available. cc: Arun Lugo MD
[2019-03-05] MEDS: FERROUS SULFATE PO SCH (09:07)
[2019-03-05] MEDS: LASIX IV SCH (09:07)
[2019-03-05] MEDS: PERIDEX MT SCH (09:07)
[2019-03-05] MEDS: IMDUR PO SCH (09:07)
--- NOTE | 2019-03-05 14:17 | DISCHARGE SUMMARY ---
ADMISSION DATE: 02/24/2019 DISCHARGE DATE: 03/05/2019 FINAL DIAGNOSES: 1. Fracture of the right hip. 2. History of coronary artery disease. CONSULTATIONS: Dr. Saxena. PROCEDURE: Pinning of the right hip 02/25/2019. HISTORY: This is one of several [facility] admissions for this 83-year-old white female who had dropped a pill on the floor, leaned over to pick the pill up, and fell resulting in a right hip injury. She presented to the emergency room where x-ray showed a fracture of the right hip. INITIAL LABORATORY: Hemoglobin 10.9, hematocrit 34.4, white blood count 6700. Sodium 139, potassium 4.6, BUN 22, creatinine 1.3, and pre-albumin 13.2. Liver functions normal. HOSPITAL COURSE: Surgery was done by Dr. Saxena on 02/25 with closed reduction and percutaneous pinning of the right hip. Subsequent physical therapy was done. The patient had moderate pain postop, but slowly improved. Appetite continued to be good. Lungs remained clear. Postop, hematocrit dropped to 26, and she was given 1 unit of packed red blood cells. Hematocrit elder to 30. She is discharged to rehab facility today for continued physical therapy and assistance. cc: Arun Lugo MD
== END 2019-03-05 16:13 | DRG 481 ==
LOC: SUPCPDRO → ED 15:51 → SUATTDRO 21:17 → 4N 21:17
PROVIDERS: ADMIT Family Medicine; ATTEND Family Medicine
CPT/HCPCS: 36430; 71010; 71045; 72192; 73522; 73552; 73562; 76000; 80048; 80053; 81001; 82948; 83735; 84134; 85014; 85018; 85025; 85027; 86850; 86900; 86901; 86920; 93005; 94761; 94799; 97110; 97116; 97162; 97530; 99285; A9270; J0690; J1940; J2270; J2370; J2405; J3010; J7030; J7040; P9016; XXXXX